=== PATIENT | female | born 1960 | race Caucasian/White ===

== ENCOUNTER 2018-09-09 01:52 | Outpatient (CLI) | payer OTHER ==
--- NOTE | 2018-09-09 13:19 | RAD ---
PA AND LATERAL VIEWS CHEST: Date: 09/09/18 HISTORY: Preoperative evaluation. FINDINGS: The heart size is normal. The lungs are well expanded without lobar consolidation, pneumothoraces, or pleural effusions. There are degenerative changes in the spine. IMPRESSION: No radiographic evidence of acute cardiopulmonary process. POS: TPC
[2018-09-09 16:10] LABS: #Basophils 0.1 thou/uL (0.0-0.2); #Eosinphils 0.2 thou/uL (0.0-0.7); #Lymphocytes 2.3 thou/uL (1.20-3.40); #Monocytes 0.5 thou/uL (0.11-0.59); #Neutrophils 3.4 thou/uL (1.40-6.50); %Basophils 1.1 % (0.0-1.0); %Eosinophils 3.3 % (0.0-10.0); %Lymphocytes 35.4 % (21.0-51.0); %Monocytes 7.1 % (0.0-10.0); %Neutrophils 53.1 % (42.0-75.0); Mean Corpuscular HGB CONC 32.1 g/dL (32.0-36.0); Mean Corpuscular Hemoglobin 25.9 pg (27.0-31.0); Mean Corpuscular Volume 80.8 fL (78.0-98.0); Mean Platelet Volume 8.2 fL (7.4-10.4); Platelet Count 303 thou/uL (130-400); RBC Distribution Width 15.2 % (11.5-14.5); Red Blood Cell (RBC) Count 4.24 mill/uL (4.20-5.40); White Blood Cell (WBC) Count 6.4 thou/uL (4.8-10.8)
[2018-09-09 16:14] LABS: Prothrombin Time 13.2 SEC (12.0-14.7)
[2018-09-09 16:35] LABS: Anion Gap 12 mmol/L (10-20); BUN (Urea Nitrogen) 21 mg/dL (9.8-20.1); Calc. Creatinine Clearance 0 mL/min (70-130); Calcium 10.1 mg/dL (7.8-10.44); Carbon Dioxide 27 mmol/L (22-29); Chloride 103 mmol/L (98-107); Estimated GFR-MDRD 73; Glucose 70 mg/dL (70-105); Potassium 4.5 mmol/L (3.5-5.1); Sodium 137 mmol/L (136-145)
--- NOTE | 2018-09-10 21:24 | EKG ---
Test Reason : Blood Pressure : / mmHG Vent. Rate : 066 BPM Atrial Rate : 066 BPM P-R Int : 134 ms QRS Dur : 082 ms QT Int : 362 ms P-R-T Axes : -08 051 046 degrees QTc Int : 379 ms Normal sinus rhythm Normal ECG When compared with ECG of 28-JUN-2013 15:33, Vent. rate has decreased BY 35 BPM Borderline criteria for Inferior infarct are no longer Present T wave inversion no longer evident in Inferior leads Confirmed by Elizabeth MONTOYA ([id number]) on 09/10/2018 9:24:22 PM Referred By: ELIOT Confirmed By:Elizabeth MONTOYA
== END 2018-09-09 01:53 | disposition home or self-care (01) ==
LOC: LABBT 01:52
PROVIDERS: ATTEND Orthopaedic Surgery
DX: Z01.818 Encounter for other preprocedural examination (principal); M17.11 Unilateral primary osteoarthritis, right knee
CPT/HCPCS: 71046; 80048; 85025; 85610; 87081; 93005; 93010

== ENCOUNTER 2018-09-09 15:30 | Inpatient (IN) | payer OTHER ==
[2018-09-09 09:25] VITALS: BMI 33.5
[2018-09-21] MEDS ORDERED: Midazolam HCl 2 mg/2 ml Vial ONE (07:24)
[2018-09-21] MEDS ORDERED: Fentanyl 100 MCG/2 ML VIAL ONE ×4 (07:24→11:36)
[2018-09-21] MEDS ORDERED: Tranexamic Acid 1,000 MG/10 ML VIAL ONE (07:57)
[2018-09-21] MEDS ORDERED: Sodium Chloride 0.9% 100 ML ONE (07:57)
[2018-09-21] MEDS ORDERED: Vancomycin HCl 1.5 GM in Sodium Chloride 0.9% 250 ML 300 ML IVPB SCH ×3 (08:15→21:00)
[2018-09-21] MEDS ORDERED: Lidocaine 1% (PF) 30 ML VIAL ONE (08:30)
[2018-09-21] MEDS ORDERED: Bupivacaine/Epinephrine 0.25% 30 ML VIAL ONE (09:22)
[2018-09-21] MEDS ORDERED: Zolpidem Tartrate 5 MG TAB PO PRN ×2 (11:13→11:15)
[2018-09-21] MEDS ORDERED: Ondansetron PF 4 MG/2 ML Vial IVP PRN ×2 (11:13→11:15)
[2018-09-21] MEDS ORDERED: Fentanyl 100 MCG/2 ML VIAL SLOW IVP PRN ×2 (11:13)
[2018-09-21] MEDS ORDERED: Promethazine HCl 25 MG/ML VIAL IM PRN ×2 (11:13→11:15)
[2018-09-21] MEDS ORDERED: HYDROcodone/Acetaminophen 10/325 mg Tablet PO PRN ×2 (11:13)
[2018-09-21] MEDS ORDERED: Acetaminophen 325 MG TAB PO PRN (11:13)
[2018-09-21] MEDS ORDERED: traMADol HCl 50 MG TAB PO PRN ×3 (11:13→11:15)
[2018-09-21] MEDS ORDERED: diphenhydrAMINE 25 MG CAP PO PRN (11:13)
[2018-09-21] MEDS ORDERED: CEFAZOLIN 2 GM in Premix Bag 1 BAG IVPB SCH (11:15)
[2018-09-21] MEDS ORDERED: Ropivacaine HCl/PF 250 ML in Premix Bag 1 BAG NERVE BLCK SCH (11:15)
[2018-09-21] MEDS ORDERED: Fentanyl 100 MCG/2 ML VIAL IV PRN (11:16)
[2018-09-21] MEDS ORDERED: Ropivacaine 0.5% HCl/PF (150 MG/30 ML VIAL) ONE (11:24)
[2018-09-21] MEDS ORDERED: Ropivacaine 0.2% HCl/PF (40 MG/20 ML VIAL) ONE (11:24)
--- NOTE | 2018-09-21 11:32 | RAD ---
EXAM: 2 views of the right knee HISTORY: Right knee arthroplasty COMPARISON: None FINDINGS: The patient is status post right knee arthroplasty without perihardware lucency or fracture . Air in the soft tissues is from recent surgery. IMPRESSION: Status post right knee arthroplasty without evidence of complication.
[2018-09-21] MEDS ORDERED: Acetaminophen 1,000 MG in Premix Bag 1 BAG IVPB SCH (11:40)
[2018-09-21] MEDS ORDERED: Ketorolac Tromethamine 30 MG/ML VIAL ONE (11:42)
[2018-09-21] MEDS ORDERED: Ondansetron PF 4 MG/2 ML Vial ONE (12:13)
[2018-09-21] MEDS ORDERED: PROPOFOL 200 MG/20 ML VIAL ONE (12:13)
[2018-09-21] MEDS ORDERED: SUMAtriptan Succinate 50 MG TAB PO PRN (13:27)
[2018-09-21] MEDS ORDERED: PROVENTIL INHALER 6.7 G (200 INHALATIONS) INH PRN (13:32)
[2018-09-21] MEDS: Ketorolac Tromethamine 30 MG/ML VIAL IVP SCH ×2 (13:33→17:56)
[2018-09-21] MEDS: Sodium Chloride 0.9% 1,000 ML IV SCH ×2 (13:34→21:39)
[2018-09-21] MEDS ORDERED: Ketorolac Tromethamine 30 MG/ML VIAL IVP SCH (14:00)
--- NOTE | 2018-09-21 14:00 | OP ---
DATE OF PROCEDURE: 09/21/2018 PREOPERATIVE DIAGNOSIS: Right knee osteoarthritis. POSTOPERATIVE DIAGNOSIS: Right knee osteoarthritis. PROCEDURE PERFORMED: Right total knee arthroplasty. AUTO PARTS PROFESSIONAL: Tung Salcedo PA-C ANESTHESIA: The patient received LMA with an adductor canal catheter and single shot sciatic. TOURNIQUET TIME: 72 minutes at 250 mmHg. ESTIMATED BLOOD LOSS: 100 mL. IMPLANTS: Rigo triathlon 3 femur, 2 tibia, 9 CS tibia, and A29 patella. ANTIBIOTICS: Vancomycin 1.5 g. The patient received TXA 1 g and Ancef 2 g. COMPLICATIONS: None. HISTORY OF PRESENT ILLNESS: Ms. Lopez is a 58-year-old female presented with right knee osteoarthritis. The patient had failed conservative measures, continued to have pain despite surgical intervention. The patient had injections with good pain relief. She had increasing pain and swelling in her right knee. I discussed with the patient, the risks and benefits of right total knee arthroplasty to include pain, scar, bleeding, infection, damage to vital structures, decreased range of motion and strength, nonunion fracture above and below the stem, need for revision, loss of life or limb, and blood clots. The patient understood the risks and benefits and elected to proceed. DESCRIPTION OF PROCEDURE: Time-out was performed designating the patient's right lower extremity as the operative site based on site, consents, and marking. After time-out, the patient's right lower extremity was prepped and draped in sterile fashion. Tourniquet was brought up and left up for a total of 72 minutes. Anterior midline incision, medial patellar arthrotomy, excised the fat pad, did a medial soft tissue release. We mapped out the distal femur cut at 0 degrees of varus and valgus, 8, 8, and 4 degrees of anterior slope. We then placed 3-degree external rotation guide, started at 4 and went to 3 cutting block, cut to 3; anterior, posterior, and chamfer cuts, removed the osteophytes and bone remnants. We then moved our tibia, mapped out and cut 2, 6, and 0 degrees varus, 4 degrees of slope, removed the bone. We then placed our lamina dry mill operator for menisectomies, decompression in PCL as well as our posterior osteophytes. We rasped a little bit over the medial side, which was a little bit sclerotic and may have caused a little bit jump posteriorly. We placed our size 3 tray, which was too big, placed a 2 tray which did well. We done a medial decompression in both osteophytes as well as the tibia, placed our tray into position. We placed our 9 poly, put patient in full extension and good stability and flexion. Otherwise, the patient had good overall alignment. Patella tracked well. We then everted the patella, cut from 25 down to about 13 and placed A29 patella. We then removed and drilled our lugs, cut our keel. We went back and rasped the medial tibia and removed medial tibial plateau. We washed the joint , cemented our tibia and placed our poly. We cemented our femur, removed all excess cement before and after those steps. We then cemented our patella, removed all excess cement, washed out the joint. We closed with #2 Vicryl, 2 STRATAFIX, 0 STRATAFIX, 2-0 STRATAFIX, and then glue. The patient will be admitted for postop protocol. Follow her inhouse. Job ID: [id number] [facility]
[2018-09-21] MEDS: metFORMIN 500 MG TAB PO SCH (17:56)
[2018-09-21] MEDS: CEFAZOLIN 2 GM in Premix Bag 1 BAG IVPB SCH (18:50)
[2018-09-21] MEDS ORDERED: Dextrose 5% in Water 1,000 ML IV PRN (18:59)
[2018-09-21] MEDS ORDERED: HumaLOG 300 UNITS/3 ML VIAL SC PRN ×2 (18:59)
[2018-09-21] MEDS ORDERED: Dextrose 50% Abboject 50 ML SYRINGE SLOW IVP PRN (18:59)
[2018-09-21] MEDS: Pramipexole Di-HCl 1 MG TAB PO SCH (21:30)
[2018-09-21] MEDS: Aspirin 81 mg Enteric Coated Tablet PO SCH (21:30)
[2018-09-21] MEDS: Senokot S 8.6-50 MG TAB PO SCH (21:30)
[2018-09-21] MEDS: Ferrous Gluconate 324 MG TAB PO SCH (21:30)
[2018-09-22] MEDS: Ketorolac Tromethamine 30 MG/ML VIAL IVP SCH ×4 (00:54→18:07)
[2018-09-22] MEDS: HYDROcodone/Acetaminophen 10/325 mg Tablet PO PRN ×5 (00:57→22:53)
[2018-09-22] MEDS: CEFAZOLIN 2 GM in Premix Bag 1 BAG IVPB SCH (01:02)
--- NOTE | 2018-09-22 02:48 | CON ---
DATE OF CONSULTATION: PRIMARY CARE PHYSICIAN: Dr. Ontiveros. PRIMARY TEAM ORTHOPEDICS: Dr. Bravo. REASON FOR CONSULTATION: Medical management. HISTORY OF PRESENT ILLNESS: This is a 58-year-old white female with a history of diabetes mellitus and osteoarthritis. She presented for elective right knee total arthroplasty done by Dr. Bravo earlier today. She is doing well postoperatively, just has a little numbness in the right lower extremity from the nerve block. No other complaints. PAST MEDICAL HISTORY: 1. Diabetes mellitus type 2, on oral hypoglycemics. 2. Restless legs syndrome. 3. Gout, single attack only in her lifetime. 4. Acid reflux disease. 5. Irritable bowel syndrome. 6. Colon cancer, status post resection. 7. Chronic back pain, controlled with epidural steroid injections. PAST SURGICAL HISTORY: 1. Colon resection and lymph node dissection for colon cancer in 2009. 2. Partial hysterectomy. 3. Appendectomy. 4. Cholecystectomy. SOCIAL HISTORY: The patient is . She quit smoking more than 10 years ago. No alcohol or illicit drug use. FAMILY HISTORY: Father had lupus, required kidney transplant and have hypertension and diabetes, and of unknown type of cancer. Mother is living and has angina and gout. ALLERGIES: 1. CLONAZEPAM. 2. GABAPENTIN. 3. LYRICA. 4. PENICILLIN. 5. SULFAMETHOXAZOLE. 6. TRIMETHOPRIM. 7. CALCIUM NITRATE. CURRENT MEDICATIONS: 1. Imitrex as needed for headache. 2. Iron 18 mg p.o. daily. 3. Vitamin D3 5000 units daily. 4. Vitamin C 1000 mg daily. 5. Albuterol sulfate inhaler 2 puffs as needed. 6. Naproxen 500 mg twice a day. 7. Aspirin 81 mg daily. 8. Mirapex 2 mg at night. 9. Omeprazole 40 mg daily. 10. Tramadol 200 mg daily as needed. 11. Metformin 500 mg twice a day. REVIEW OF SYSTEMS: CONSTITUTIONAL: No fevers. No chills. EYES: No double vision or blurred vision. ENT: No congestion, drainage, or sore throat. CARDIOVASCULAR: No chest pain. No palpitation or racing heart. PULMONARY: No coughing, wheezing, or shortness of breath. GASTROINTESTINAL: No abdominal pain. No nausea or vomiting. No diarrhea or constipation. GENITOURINARY: No dysuria or hematuria. MUSCULOSKELETAL: She has chronic swelling and pain in the right knee prior to the knee surgery. No other musculoskeletal complaints. Does have a history of some chronic back problems, that is controlled with some injections. SKIN: No rashes or lesions she has noted. NEUROLOGIC: She has had some tingling and some spasm of her toes since a nerve block for the surgery. Otherwise, no numbness, tingling, or focal weakness. PHYSICAL EXAMINATION: VITAL SIGNS: Blood pressure 113/68, pulse 89, respirations 18, temperature 97.7, O2 saturation 98% on room air. GENERAL: This is a well-developed, obese, white female, in no acute distress. HEENT: Pupils are equal, round, and reactive to light. Oropharynx clear without lesions, erythema, or exudate. NECK: Supple. No lymphadenopathy. No thyromegaly or masses. No JVD. HEART: Regular rate and rhythm. No murmurs, rubs, or gallops. LUNGS: Clear to auscultation bilaterally. No wheezes, crackles, or rhonchi. ABDOMEN: Soft and nontender to palpation. Normoactive bowel sounds. No hepatosplenomegaly or other masses. EXTREMITIES: No clubbing, cyanosis, or edema. She does have a postoperative dressing on her right knee that is clean, dry, and intact. Has intact peripheral pulses. She has SCD and YOLY on her left lower extremity. SKIN: No rashes or lesions noted. NEUROLOGIC: Intact, movement in all extremities. No facial droop. PSYCHIATRIC: Alert and oriented x3. Normal mood and affect. LABORATORY DATA: Negative urinalysis on the of this month, and on the this month, hemoglobin was 11.0, hematocrit 34.3. The rest of the CBC was normal. Coagulation profile was normal. Basic metabolic panel showed only abnormality was a BUN of 21. Chest x-ray, the patient had chest x-ray done on the , showed no acute cardiopulmonary process. ASSESSMENT: 1. Diabetes mellitus type 2, not insulin dependent. We will continue patient's metformin. We will check her fingerstick blood sugars before meals and at bedtime. For now, we will do low-dose insulin sliding scale. If her blood sugars are well controlled, we can discontinue these fingersticks after the 1st day or so. 2. Restless legs syndrome. Continue nighttime medication. 3. History of acid reflux. We will give Protonix in the hospital. 4. Deep venous thrombosis prophylaxis. Sequential compression device and YOLY as per Surgery. 5. Osteoarthritis, status post knee replacement. 6. Code status. I did discuss this with the patient, she is a full code. Should she be incapacitated, her will be her medical decision maker. His name is Aris Lopez. Job ID: [id number]
[2018-09-22 06:23] LABS: Hemoglobin 10.4 g/dL (12.0-16.0); Mean Corpuscular HGB CONC 31.8 g/dL (32.0-36.0); Mean Corpuscular Hemoglobin 25.9 pg (27.0-31.0); Mean Corpuscular Volume 81.2 fL (78.0-98.0); Mean Platelet Volume 8.1 fL (7.4-10.4); Platelet Count 246 thou/uL (130-400); RBC Distribution Width 15.7 % (11.5-14.5); Red Blood Cell (RBC) Count 4.01 mill/uL (4.20-5.40); White Blood Cell (WBC) Count 11.2 thou/uL (4.8-10.8)
[2018-09-22] MEDS: Sodium Chloride 0.9% 1,000 ML IV SCH ×2 (06:52→20:48)
[2018-09-22] MEDS: Multivitamin W/ Minerals 1 TAB PO SCH (08:22)
[2018-09-22] MEDS: Ascorbic Acid 500 mg Chewable Tablet PO SCH (08:23)
[2018-09-22] MEDS: Senokot S 8.6-50 MG TAB PO SCH ×2 (08:23→22:49)
[2018-09-22] MEDS: Ferrous Gluconate 324 MG TAB PO SCH ×2 (08:23→22:48)
[2018-09-22] MEDS: metFORMIN 500 MG TAB PO SCH ×2 (08:23→18:07)
[2018-09-22] MEDS: Aspirin 81 mg Enteric Coated Tablet PO SCH ×2 (08:23→22:48)
--- NOTE | 2018-09-22 08:41 | PDOC.PN ---
- Subjective Encounter Start Date: 09/22/18 Encounter Start Time: 12:50 Subjective: Patient with some postop pain in left knee, domenic with PT this AM. Otherwise -: without complaints. No CP/SOB/N/V. - Objective Resuscitation Status - Order Detail: 09/21/18 19:29 Resuscitation Status Routine Resuscitation Status: FULL: Full Resuscitation Discussed with: Patient FRIEDA Reviewed: Yes Vital Signs & Weight: Vital Signs (12 hours) Temp Pulse Resp BP BP Pulse Ox 09/22/18 08:17 99.1 F 91 16 96/59 L 93 L 09/22/18 03:11 98.5 F 95 18 106/64 93 L 09/21/18 23:36 99.3 F 93 18 131/84 94 L Weight Weight 183 lb I&O: 09/21/18 09/22/18 09/23/18 06:59 06:59 06:59 Intake Total 2080 Output Total 1400 Balance 680 Result Diagrams: 09/22/18 05:49 Additional Labs: Accuchecks 09/22/18 09/21/18 05:41 21:00 POC Glucose 109 99 Phys Exam - Physical Examination Constitutional: NAD HEENT: moist MMs Respiratory: no wheezing, no rales, no rhonchi Cardiovascular: RRR, no significant murmur Gastrointestinal: soft, positive bowel sounds left knee bandage c/d/i Neurological: non-focal, moves all 4 limbs Psychiatric: normal affect, A&O x 3 Dx/Plan (1) Diabetes mellitus type 2 in obese Code(s): E11.69 - TYPE 2 DIABETES MELLITUS WITH OTHER SPECIFIED COMPLICATION; E66.9 - OBESITY, UNSPECIFIED Status: Chronic Comment: controlled on oral hypoglycemics, can d/c routine FSBS (2) GERD (gastroesophageal reflux disease) Code(s): K21.9 - GASTRO-ESOPHAGEAL REFLUX DISEASE WITHOUT ESOPHAGITIS Status: Chronic Comment: on PPI (3) Restless leg syndrome Status: Chronic (4) S/P total knee arthroplasty Code(s): Z96.659 - PRESENCE OF UNSPECIFIED ARTIFICIAL KNEE JOINT Status: Acute Qualifiers: Laterality: right Qualified Code(s): Z96.651 - Presence of right artificial knee joint - Plan cont current plan of care, PT/OT * . - Discharge Day Encounter end time: 13:00
[2018-09-22] MEDS: Pramipexole Di-HCl 1 MG TAB PO SCH (22:49)
[2018-09-23] MEDS: Ketorolac Tromethamine 30 MG/ML VIAL IVP SCH ×2 (01:50→06:11)
[2018-09-23] MEDS: Sodium Chloride 0.9% 1,000 ML IV SCH (03:44)
[2018-09-23 05:06] LABS: Hemoglobin 8.8 g/dL (12.0-16.0); Mean Corpuscular HGB CONC 32.4 g/dL (32.0-36.0); Mean Corpuscular Hemoglobin 26.4 pg (27.0-31.0); Mean Corpuscular Volume 81.4 fL (78.0-98.0); Mean Platelet Volume 8.2 fL (7.4-10.4); Platelet Count 174 thou/uL (130-400); RBC Distribution Width 15.5 % (11.5-14.5); Red Blood Cell (RBC) Count 3.33 mill/uL (4.20-5.40); White Blood Cell (WBC) Count 9.5 thou/uL (4.8-10.8)
[2018-09-23] MEDS: HYDROcodone/Acetaminophen 10/325 mg Tablet PO PRN ×2 (08:21→13:43)
[2018-09-23] MEDS: Multivitamin W/ Minerals 1 TAB PO SCH (08:23)
[2018-09-23] MEDS: metFORMIN 500 MG TAB PO SCH (08:24)
[2018-09-23] MEDS: Aspirin 81 mg Enteric Coated Tablet PO SCH (08:24)
[2018-09-23] MEDS: Senokot S 8.6-50 MG TAB PO SCH (08:24)
[2018-09-23] MEDS: Ferrous Gluconate 324 MG TAB PO SCH (08:25)
[2018-09-23] MEDS: Ascorbic Acid 500 mg Chewable Tablet PO SCH (08:25)
--- NOTE | 2018-09-23 13:52 | PDOC.PN ---
- Subjective Encounter Start Date: 09/23/18 Encounter Start Time: 13:30 Subjective: Patient seen by ortho earlier today and cleared for discharge. Nurse came -: to d/c patient and patient tachycardic. States she just feels "bad" since -: yest. Pain only in right knee. Not hungry but no nausea. - Objective Resuscitation Status - Order Detail: 09/21/18 19:29 Resuscitation Status Routine Resuscitation Status: FULL: Full Resuscitation Discussed with: Patient MAR Reviewed: Yes Vital Signs & Weight: Vital Signs (12 hours) Temp Pulse Resp BP BP Pulse Ox 09/23/18 12:40 101 H 16 124/77 98 09/23/18 08:13 99.2 F 97 18 116/72 96 09/23/18 04:40 98.2 F 92 18 104/69 95 Weight Admit Weight 183 lb Weight 183 lb I&O: 09/22/18 09/23/18 09/24/18 06:59 06:59 06:59 Intake Total 2080 500 Output Total 1400 200 Balance 680 300 Result Diagrams: 09/23/18 04:44 Phys Exam - Physical Examination Constitutional: NAD HEENT: moist MMs Respiratory: no wheezing, no rales, no rhonchi, clear to auscultation bilateral Cardiovascular: no significant murmur tachycardic, regular Gastrointestinal: soft, non-tender, positive bowel sounds Neurological: non-focal Psychiatric: normal affect, A&O x 3 Dx/Plan (1) Diabetes mellitus type 2 in obese Code(s): E11.69 - TYPE 2 DIABETES MELLITUS WITH OTHER SPECIFIED COMPLICATION; E66.9 - OBESITY, UNSPECIFIED Status: Chronic Comment: controlled on oral hypoglycemics, can d/c routine FSBS (2) GERD (gastroesophageal reflux disease) Code(s): K21.9 - GASTRO-ESOPHAGEAL REFLUX DISEASE WITHOUT ESOPHAGITIS Status: Chronic Comment: on PPI (3) Restless leg syndrome Status: Chronic (4) S/P total knee arthroplasty Code(s): Z96.659 - PRESENCE OF UNSPECIFIED ARTIFICIAL KNEE JOINT Status: Acute Qualifiers: Laterality: right Qualified Code(s): Z96.651 - Presence of right artificial knee joint (5) Tachycardia Code(s): R00.0 - TACHYCARDIA, UNSPECIFIED Status: Acute Comment: normal CBC this AM, no leukocytosis, will check CMP/Troponin/D-dimer/CXR, if positive will check CT angio - Plan cont current plan of care, PT/OT If workup neg can d/c home later today * . - Discharge Day Encounter end time: 13:55
--- NOTE | 2018-09-23 14:08 | RAD ---
EXAM: Single view of the chest HISTORY: Tachycardia COMPARISON: 06/28/2013 FINDINGS: Single view of the chest shows a normal sized cardiomediastinal silhouette. There is no diana dence of consolidation, mass, or pleural effusion. The bones are unremarkable. IMPRESSION: No evidence of acute cardiopulmonary disease
[2018-09-23 14:42] LABS: ALT (SGPT) 69 U/L (8-55); AST (SGOT) 36 U/L (5-34); Albumin 3.5 g/dL (3.5-5.0); Alkaline Phosphatase 96 U/L (40-150); Anion Gap 14 mmol/L (10-20); BUN (Urea Nitrogen) 22 mg/dL (9.8-20.1); Bilirubin, Total 0.5 mg/dL (0.2-1.2); Calc. Creatinine Clearance 92 mL/min (70-130); Calcium 8.6 mg/dL (7.8-10.44); Carbon Dioxide 24 mmol/L (22-29); Chloride 102 mmol/L (98-107); Estimated GFR-MDRD 68; Globulin 2.8 g/dL (2.4-3.5); Glucose 122 mg/dL (70-105); Potassium 4.5 mmol/L (3.5-5.1); Protein, Total 6.3 g/dL (6.0-8.3); Sodium 135 mmol/L (136-145)
--- NOTE | 2018-09-23 15:22 | CT ---
CT ANGIOGRAM THORAX WITH IV CONTRAST AND 3-D RECONSTRUCTIONS CLINICAL INDICATION: Tachycardia and elevated d-dimer post recent surgery. COMPARISON: None FINDINGS: Pulmonary arteries: No filling defects are seen in the pulmonary arteries to suggest a pulmonary embo connor. Aorta: The aorta is normal in caliber without evidence of an aortic dissection. Of uncertain etiology. Pleural-based plaques can be seen with prior asbestos exposure. Lungs: There are scattered but diffuse mild pleural-based plaques involving the lungs bilaterally. Th is is an overall nonspecific finding. Clinical correlation is recommended. Mediastinum: There is no evidence of lymphadenopathy. Thyroid gland: There is a peripherally calcified hypodense nodule right lobe of thyroid gland measuri ng 1.7 cm. Osseous structures: Mild degenerative changes are seen in the spine. Chest wall: There is mild asymmetry in the breast parenchyma in the right breast compared to the left . However, this was noted on prior mammograms in 2018 as well as 2013. Upper abdomen: Postcholecystectomy changes are noted. IMPRESSION: 1. Nonspecific scattered bilateral discontinuous pleural-based plaques. Findings could be related to asbestos exposure in the correct clinical scenario, but other etiologies for pleural-based plaques is also possible. Clinical correlation is recommended. 2. No CT evidence of a pulmonary embolus.
[2018-09-23 15:50] VITALS: BP 105/69; TEMP 99.1
== END 2018-09-23 15:55 | disposition home or self-care (01) | DRG 470 ==
LOC: SURG A 09-21 06:51
PROVIDERS: ADMIT Orthopaedic Surgery; ATTEND Orthopaedic Surgery
PROC: 0SRC0J9 Replacement of Right Knee Joint with Synthetic Substitute, Cemented, Open Approach (ICD-10-PCS; principal; 2018-09-21)
DX: M17.11 Unilateral primary osteoarthritis, right knee (principal); E11.9 Type 2 diabetes mellitus without complications; G25.81 Restless legs syndrome; M10.9 Gout, unspecified; K21.9 Gastro-esophageal reflux disease without esophagitis; R00.0 Tachycardia, unspecified; D64.9 Anemia, unspecified; Z85.038 Personal history of other malignant neoplasm of large intestine; Z79.84 Long term (current) use of oral hypoglycemic drugs; Z90.710 Acquired absence of both cervix and uterus; Z90.49 Acquired absence of other specified parts of digestive tract; Z87.891 Personal history of nicotine dependence; Z88.0 Allergy status to penicillin; Z88.2 Allergy status to sulfonamides; Z88.8 Allergy status to other drugs, medicaments and biological substances; Z79.82 Long term (current) use of aspirin; Z79.899 Other long term (current) drug therapy
CPT/HCPCS: 36415; 36416; 71045; 71275; 80053; 84484; 85027; 85379; 93005; 93010; C1713; C1776; J0131; J0690; J1885; J2001; J2250; J2405; J2704; J2795; J3010; J3370; J3490; J7050

== ENCOUNTER 2018-12-07 06:34 | Day surgery (SDC) | payer OTHER ==
[2018-12-06 09:00] VITALS: BMI 31.4
[2018-12-07] MEDS ORDERED: Fentanyl 100 MCG/2 ML VIAL ONE ×3 (07:42→09:38)
[2018-12-07] MEDS ORDERED: Midazolam HCl 2 mg/2 ml Vial ONE (07:42)
[2018-12-07] MEDS ORDERED: Ketorolac Tromethamine 30 MG/ML VIAL ONE (09:44)
--- NOTE | 2018-12-07 09:58 | RAD ---
RIGHT KNEE THREE VIEWS: HISTORY: Knee pain. Manipulation under anesthesia. FINDINGS: A right knee prosthesis is noted. Components appear in adequate position and alignment. No evidence of joint effusion. No fracture or acute osseous abnormality. IMPRESSION: No acute finding. POS: OFF
[2018-12-07] MEDS ORDERED: Morphine 2 MG/ML SYRINGE ONE (10:04)
[2018-12-07] MEDS ORDERED: Bupivacaine HCl 0.5%/Epinephrine 1:200,000/PF 30 ml Vial ONE (15:02)
[2018-12-07] MEDS ORDERED: Dexamethasone 20 MG/5 ML VIAL ONE (15:21)
[2018-12-07] MEDS ORDERED: Lidocaine 1% PF 5 ML VIAL ONE (15:21)
[2018-12-07] MEDS ORDERED: PROPOFOL 200 MG/20 ML VIAL ONE (15:21)
[2018-12-07] MEDS ORDERED: Ondansetron PF 4 MG/2 ML Vial ONE (15:21)
--- NOTE | 2018-12-07 15:30 | OP ---
DATE OF PROCEDURE: 12/07/2018 PREOPERATIVE DIAGNOSES: Right knee osteoarthritis with postoperative stiffness. POSTOPERATIVE DIAGNOSES: Right knee osteoarthritis with postoperative stiffness. PROCEDURE PERFORMED: Right knee manipulation under anesthesia. ANESTHESIOLOGIST: Ronnie Licona MD ANESTHESIA: The patient received LMA. The patient received a single-shot femoral block. ANTIBIOTICS: None. ESTIMATED BLOOD LOSS: None. COMPLICATIONS: None. HISTORY OF PRESENT ILLNESS: Ms. Lopez is a 58-year-old female presented with stiff knee postoperatively at about 0 to 80 degrees of motion. I discussed with her the risks and benefits of a right knee manipulation under anesthesia to include pain, scar, bleeding, infection, damage to vital structures, decreased range of motion and strength, fracture, failure of procedure, continued pain, need for further surgery, loss of life or limb. The patient understood the risks and benefits and elected to proceed. DESCRIPTION OF PROCEDURE: Time-out was performed designating the patient's right lower extremity as the operative site based on site, consents, and marking. In the right lower extremity, we performed a time-out. I put the patient on sandbag, straightened her leg out, build gentle manipulation, and then flexed her knee up. She measured about 80 degrees preop. I got her to 126 by my goniometer. After completion of manipulation AP and laterally, we took AP and lateral views, one both lateral and one flexed, showing no fracture of patella or any defect on the patella. We then completed the procedure and transferred the patient back. The patient will start therapy tomorrow. She will walk today. If she requires a knee immobilizer, she will use that to ambulate in home. She will not require it after the block wears off. The patient will follow up with us in about 3 weeks for repeat exam of her patella from her motion. She understands all these risks and benefits. She understands the followup. She will be discharged home with pain medications. Job ID: [id number]
== END 2018-12-07 11:03 | disposition home or self-care (01) ==
LOC: SDC 06:34
PROVIDERS: ATTEND Orthopaedic Surgery
PROC: 0SQCXZZ Repair Right Knee Joint, External Approach (ICD-10-PCS; principal; 2018-12-07)
PROC: 3E0T3BZ Introduction of Anesthetic Agent into Peripheral Nerves and Plexi, Percutaneous Approach (ICD-10-PCS; principal; 2018-12-07)
DX: M25.661 Stiffness of right knee, not elsewhere classified (principal); G89.18 Other acute postprocedural pain; Z79.82 Long term (current) use of aspirin; Z79.84 Long term (current) use of oral hypoglycemic drugs; Z79.899 Other long term (current) drug therapy; Z87.891 Personal history of nicotine dependence; Z88.0 Allergy status to penicillin; Z88.8 Allergy status to other drugs, medicaments and biological substances; Z96.651 Presence of right artificial knee joint
CPT/HCPCS: J0670; J1100; J1885; J2001; J2250; J2270; J2405; J2704; J3010

== ENCOUNTER 2019-10-31 09:28 | Outpatient (CLI) | payer OTHER ==
--- NOTE | 2019-10-31 11:00 | MRI ---
MRI LUMBAR SPINE NONCONTRAST: DATE: 10/31/2019 HISTORY: 59-year-old female with "acute lumbar radiculopathy" superimposed on chronic low back pain COMPARISON: 11/25/2010 FINDINGS: 5 lumbar-type vertebrae. Conus medullaris terminates at T12-L1. No major bone marrow signal abnormali ty. Vertebral body heights are maintained. T12-L1:Normal L1-2:Normal L2-3:Minimal disc bulge. Mild right facet DJD. Otherwise normal. L3-4:Mild disc bulge. No central or neural foraminal stenosis. Mild bilateral facet DJD. L4-5:Severe bilateral facet DJD causes grade 1 anterolisthesis of L4 on L5, which has worsened 2011. Diffuse disc bulge is now larger. All of these factors now result in a new finding of severe central spinal canal stenosis with crowding of cauda equina and obliteration of CSF signal, and sever e lateral recess stenosis bilaterally. There is moderate right neural foraminal stenosis, and mild to moderate left neural foraminal stenosis. There is interval decrease in disc height, now with moder ate disc space narrowing. L5-S1:No high-grade disc space narrowing. Small central and right-central disc herniation has become slightly larger, with new finding of slightly greater right posterior displacement of the right S1 nerve root, and abutment of right S2 nerve root.. New small bilateral nerve root sleeve cysts around the bilateral S1 nerve roots at the lateral recesses. No high-grade central spinal canal stenosis. No right neural foraminal stenosis. Mild left neural foraminal stenosis. IMPRESSION: 1) interval worsening of grade 1 spondylolisthesis at L4-5 (due to severe bilateral facet osteoarthro sis), resulting in severe central spinal canal stenosis and progression of moderate degenerative disc disease, at that level. 2) interval increase in size of small right-central focal disc herniation at L5-S1.
== END 2019-10-31 09:29 | disposition home or self-care (01) ==
LOC: BICMRI 09:28
PROVIDERS: ATTEND Anesthesiology Pain Medicine
DX: M47.26 Other spondylosis with radiculopathy, lumbar region (principal); M51.16 Intervertebral disc disorders with radiculopathy, lumbar region; M43.16 Spondylolisthesis, lumbar region; M48.061 Spinal stenosis, lumbar region without neurogenic claudication; M51.27 Other intervertebral disc displacement, lumbosacral region
CPT/HCPCS: 72148

== ENCOUNTER 2020-02-08 05:47 | Outpatient (CLI) | payer OTHER ==
[2020-02-08 08:55] LABS: Hemoglobin 8.3 g/dL (12.0-16.0); Mean Corpuscular Hemoglobin 24.2 PG (27.0-33.0); Mean Corpuscular Volume 80.8 fl (80.0-100.0); Mean Platelet Volume 10.5 fl (7.4-10.4); Platelet Count 245 10x3/uL (130-400); RBC Distribution Width 14.8 % (11.5-14.5); Red Blood Cell (RBC) Count 3.43 10x6/uL (3.90-5.20); White Blood Cell (WBC) Count 5.1 10x3/uL (4.5-11.0)
[2020-02-08 09:14] LABS: PTT 26.5 sec (22.0-33.0); Prothrombin Time 10.8 sec (9.5-12.1)
[2020-02-09 18:38] LABS: SARS-CoV-2 MS2 Positive; SARS-CoV-2 N Gene Negative; SARS-CoV-2 S Gene Negative; SARS-CoV-2 by NAA Not Detected (NotDetected); SARS-CoV-2 orf1ab Negative
--- NOTE | 2020-02-14 02:13 | EKG ---
Test Reason : Blood Pressure : / mmHG Vent. Rate : 081 BPM Atrial Rate : 081 BPM P-R Int : 114 ms QRS Dur : 084 ms QT Int : 342 ms P-R-T Axes : 018 044 036 degrees QTc Int : 397 ms Normal sinus rhythm Normal ECG No previous ECGs available Confirmed by AUSTIN ALEGRIA MD ([id number]) on 02/14/2020 2:12:49 AM Referred By: MARGARITA Confirmed By:AUSTIN ALEGRIA MD
== END 2020-02-08 05:48 | disposition home or self-care (01) ==
LOC: LABBT 05:47
PROVIDERS: ATTEND Neurological Surgery
DX: Z01.818 Encounter for other preprocedural examination (principal); Z20.828 Contact with and (suspected) exposure to other viral communicable diseases; M43.16 Spondylolisthesis, lumbar region
CPT/HCPCS: 85027; 85610; 85730; 87635; 93005; 93010; U0003

== ENCOUNTER 2020-02-08 08:30 | Inpatient (IN) | payer OTHER ==
[2020-02-10 08:58] VITALS: BMI 32.5
--- NOTE | 2020-02-13 05:08 | HP ---
REASON FOR HISTORY AND PHYSICAL: Surgery on 02/13/2020. Case #[id number]. HISTORY OF PRESENT ILLNESS: Ms. Lopez is a 59-year-old female with a chief complaint of lower back and bilateral leg pain for the past 10 years. She has been receiving epidural spinal injections and they are only giving her about a week's worth of relief from her symptoms. Can walk about 100 to 200 feet before she has to sit or bend forward to alleviate some of her pain. Pain radiates into her bilateral gluteal muscles, anterior thighs, posterior calves, and plantar aspects of the feet. Her symptoms are greater on the right side than left side. She also reports some weakness in her feet. Denied bladder or bowel dysfunction. REVIEW OF SYSTEMS: CONSTITUTIONAL: Denies fever or chills. ENT: Denies change in vision or hearing. CARDIAC: Denies chest pain, shortness of breath, diaphoresis. PULMONARY: Denies shortness of breath, cough, hemoptysis. GI: Denies fecal incontinence, abdominal pain, nausea, vomiting, diarrhea, change in stool formation and consistency. : Denies urinary incontinence, trouble with urination, frequency of urination, bloody urine. SKIN: Denies skin rash, bruising, bleeding, skin masses. MUSCULOSKELETAL: As per history of present illness. NEUROLOGIC: As per history of present illness. PSYCHOLOGIC: Denies anxiety, depression, behavior changes. MEDICAL HISTORY: Herniated disk, ovarian cyst, endometriosis, colon cancer, SP colectomy in 03/2009, IBS. SURGICAL HISTORY: Hysterectomy 20 years ago, ovarian 1989, gallbladder surgery in 1999, appendectomy in 2004, rectocele in 2007, colon resection on 04/16/2009, RT TKR on 09/21/18, RT BAILEY on 12/07/2018. HOSPITALIZATIONS: Above surgeries. FAMILY HISTORY: Father , kidney problems, diabetes, high blood pressure, heart disease, lupus. Mother alive, heart murmur, thyroid disease, osteoarthritis. SOCIAL HISTORY: Former smoker. Quit in 2006. Denies alcohol use or illicit drug use. MEDICATIONS: 1. Albuterol 90 mcg. 2. Pramipexole 0.25 mg. 3. Omeprazole 40 mg. 4. Sumatriptan 100 mg. 5. Metformin 500 mg. 6. Naproxen 500 mg. 7. Vitamin D 1000 units. 8. Vitamin C 500 mg. 9. Fish oil 5 mg. 10. Simvastatin 10 mg. 11. Acetaminophen and hydrocodone 10/325 mg. ALLERGIES: CALCIUM ACETATE, STOMACH UPSET; KLONOPIN ALLERGY; GABAPENTIN, SWELLING. PHYSICAL EXAMINATION: VITAL SIGNS: Weight 170 pounds, height 62 inches, BMI 31.09. HEENT: Pupils are equal. Extraocular movements are intact. NECK: Soft, supple. No masses are noted. Range of motion is intact and nonpainful. NEUROLOGIC: Awake, alert, and oriented x3. Memory, attention, fund of knowledge normal. Cranial nerves are grossly intact. Gait and station: Normal. Motor: Normal strength in the iliopsoas, quadriceps, hamstrings, anterior tib, EHL, gastrocs and toe flexors. Sensory: Mild stocking distribution, sensory loss bilaterally. Reflex: Knee and ankle hypoactive, symmetric. IMAGING: MRI of the L-spine: Moderate L5-S1 lateral recess stenosis. Severe L4-5 stenosis and foraminal. Spondylolisthesis, L4-5. X-ray L-spine: Flexion and extension stable. ASSESSMENT: 1. Spondylolisthesis of the lumbar region. 2. 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 3. Osseous and subluxation stenosis of intervertebral foramina of the lumbar region. PLAN: 1. Laminectomy in L4-S1 with TLIF at L4-5. 2. Anesthesia clearance. 3. Preop labs, CBC, PT, PTT, COVID-19. INFORMED CONSENT: We discussed the indications, risks, benefits, alternatives, and expected results from surgery. The risks discussed included, but were not limited to, bleeding, infection, CSF leak, nerve damage, weakness, incontinence, cauda equina injury, arachnoiditis, paralysis, ventilator dependency, wheelchair dependency, loss of vision, hardware misplacement, cardiopulmonary complications of anesthesia or . Long-term complications discussed included, but were not limited to, degeneration of surrounding disk and future surgery. She understands the risks and is willing to proceed. Job ID: [id number]
[2020-02-13] MEDS ORDERED: EPINEPHrine 1 MG/ML AMP ONE ×2 (06:11→14:15)
[2020-02-13] MEDS ORDERED: Thrombin 5000 UNITS/5 ML VIAL ONE (06:11)
[2020-02-13] MEDS ORDERED: Bupivacaine PF 0.5% 30 ML VIAL ONE (06:11)
[2020-02-13] MEDS ORDERED: Fentanyl 100 MCG/2 ML VIAL ONE ×4 (06:37→13:05)
[2020-02-13] MEDS ORDERED: Promethazine HCl 25 MG/ML VIAL IM PRN ×2 (07:34→11:52)
[2020-02-13] MEDS ORDERED: Promethazine HCl 25 MG/ML VIAL SLOW IVP PRN (07:34)
[2020-02-13] MEDS ORDERED: Ondansetron HCl/PF 4 MG/2 ML Vial IVP PRN (07:34)
[2020-02-13] MEDS ORDERED: Phenylephrine 10 MG/ML VIAL ONE (08:32)
[2020-02-13] MEDS ORDERED: Promethazine 25 MG TAB PO PRN (11:52)
[2020-02-13] MEDS ORDERED: Acetaminophen 325 MG TAB PO PRN (11:52)
[2020-02-13] MEDS ORDERED: Milk Of Magnesia 30 ML UDCUP PO PRN (11:52)
[2020-02-13] MEDS ORDERED: Scopolamine 1.5 mg/72 hour Patch TD PRN (11:52)
[2020-02-13] MEDS ORDERED: Morphine 2 MG/ML VIAL SLOW IVP PRN (11:52)
[2020-02-13] MEDS ORDERED: traMADol HCl 50 MG TAB PO PRN (11:52)
[2020-02-13] MEDS ORDERED: Mag-Al 1200 mg/1200 mg/30 ML UDCUP PO PRN (11:52)
[2020-02-13] MEDS ORDERED: diphenhydrAMINE 25 MG CAP PO PRN (11:52)
[2020-02-13] MEDS ORDERED: SUMAtriptan Succinate 50 MG TAB PO PRN (12:24)
[2020-02-13] MEDS ORDERED: Albuterol Sulfate 2.5 mg/3 ml Neb NEB PRN (12:27)
[2020-02-13] MEDS ORDERED: Rocuronium Bromide 10 MG/ML (10ML VIAL) ONE (14:15)
[2020-02-13] MEDS ORDERED: Ondansetron PF 4 MG/2 ML Vial ONE (14:15)
[2020-02-13] MEDS ORDERED: PHENYLEPHRINE-NS 100 MCG/ML 10 ML SYRINGE ONE (14:15)
[2020-02-13] MEDS ORDERED: PROPOFOL 200 MG/20 ML VIAL ONE (14:15)
[2020-02-13] MEDS ORDERED: Glycopyrrolate 0.2 MG/ML 5 ML SYRINGE ONE (14:15)
[2020-02-13] MEDS ORDERED: Lidocaine 1% PF 5 ML VIAL ONE (14:15)
[2020-02-13] MEDS ORDERED: Morphine 4 MG/ML VIAL ONE ×2 (15:22→16:56)
--- NOTE | 2020-02-13 17:11 | OP ---
DATE OF PROCEDURE: 02/13/2020 [employer]IGAR PACKER AND SHADER: Lokesh Martinez PA-C PREOPERATIVE INDICATION: Treat pain and prevent neurological deterioration. PREOPERATIVE DIAGNOSIS: Lumbar stenosis with neurogenic claudication at L4-5 from subluxation at L5-S1 from facet overgrowth and lateral recess disease. POSTOPERATIVE DIAGNOSIS: Lumbar stenosis with neurogenic claudication at L4-5 from subluxation at L5-S1 from facet overgrowth and lateral recess disease. PROCEDURES PERFORMED: 1. Decompressive laminectomy with medial facetectomy, foraminotomy at L4-5 and L5-S1. 2. Transforaminal lumbar interbody arthrodesis at L4-L5. 3. Pedicle screw and scarlet instrumentation at L4-L5. 4. Placement of intervertebral biomechanical device at L4-L5. 5. Posterolateral arthrodesis at L4-L5. 6. Local morselized autograft and morselized allograft. PREOPERATIVE MEDICATIONS: Ancef 2 g IV. DRAIN NUMBER: Zero. DRAIN TYPE: None. DESCRIPTION OF PROCEDURE: The patient was brought to the operating room. General endotracheal anesthesia was induced. The patient was positioned prone on the operating table on the Jay frame with appropriate padding for the chest and hips. A lateral fluoro radiograph was used to plan our incision. The lumbar skin was sterilely prepped and draped. We opened a midline incision with a 10 blade knife. We controlled bleeding with bipolar cautery. We used monopolar cautery to dissect through subcutaneous tissues to the thoracodorsal fascia. We incised the fascia in the midline, reflected paraspinal muscles off the spinous process and lamina from L4 through S1. A lateral fluoro radiograph confirmed the levels upon which we were operating. We carried our dissection over the facet joints at L3-L4 and L4-L5 to identify the transverse processes of L4 and L5 bilaterally. We irrigated with bacitracin irrigation. We began our decompression by removing spinous processes from L4 to the top of the sacrum. Kerrison rongeurs were used to fashion a laminectomy down the midline. There was a significant amount of connective tissue buildup at the L4-L5 interspace requiring a generous amount of medial facetectomy to decompress the lateral recesses there. We had to perform foraminotomies over the exiting L4 nerve roots on both sides (more decompression than necessary for TLIF). At L5-S1, medial facetectomies were needed to decompress the lateral recesses over the S1 nerve roots. Once our decompression was secured, we turned our attention to arthrodesis. We performed a complete facetectomy on the right at L4-5 and using this access point, I entered the interspace with the thecal sac gently retracted medially. We removed disk contents using curettes and rongeurs. We prepared the endplates for grafting with curettes. We measured the height of the interspace 10 mm with a rectangular bone rasp. A 10 mm PEEK interbody graft was brought into the field. This device was loaded with demineralized bone matrix and morselized autograft and advanced into the interspace under radiographic guidance to the appropriate depth. We turned our attention to pedicle screw instrumentation. Using bony anatomic landmarks, palpation of the medial portion of the pedicles, and a lateral fluoro radiograph as our guide, we chose entry points for pedicle screws at L4 and L5 bilaterally. We drilled out our entry points and used a bone awl to create our trajectories. We used a threaded tap to tap our trajectories and we found a completely encased bone. 6.5 mm diameter pedicle screws were placed at L4 and L5 bilaterally. A 360-degree image set was generated with our isocentric C-arm. This confirmed adequate positioning of our pedicle screw instrumentation. We irrigated with bacitracin irrigation. We decorticated the transverse processes of L4 and L5 bilaterally. We laid demineralized bone matrix and morselized autograft over the decorticated bone in the posterolateral recess as our fusion substrate in that area. We brought rods and other screw heads and tightened caps over the rods. We used gentle compressive force across the interspace before final tightening to keep our interbody graft in place. A Davis ball was passed out at each L4 foramen without impingement at the completion of the scarlet instrumentation. We irrigated the center of the wound with bacitracin irrigation. We treated the wound with vancomycin powder. We closed the wound in anatomical layers. We applied a sterile dressing. This was a clean case, no contamination. Job ID: [id number]
[2020-02-13] MEDS: CEFAZOLIN 2 GM in Premix Bag 1 BAG IVPB SCH (18:31)
[2020-02-13] MEDS: metFORMIN 500 MG TAB PO SCH (18:35)
[2020-02-13] MEDS: Sodium Chloride 0.9% 1,000 ML IV SCH (18:35)
[2020-02-13] MEDS: HYDROcodone/Acetaminophen 10/325 mg Tablet PO PRN (18:38)
[2020-02-13] MEDS ORDERED: Simvastatin 10 MG TAB PO SCH (21:00)
[2020-02-13] MEDS ORDERED: Pramipexole Di-HCl 1 MG TAB PO SCH (21:00)
[2020-02-13] MEDS: tiZANidine HCl 4 MG TAB PO PRN (22:34)
[2020-02-14] MEDS: CEFAZOLIN 2 GM in Premix Bag 1 BAG IVPB SCH (01:08)
[2020-02-14] MEDS: HYDROcodone/Acetaminophen 10/325 mg Tablet PO PRN ×3 (01:08→15:08)
[2020-02-14] MEDS: Sodium Chloride 0.9% 1,000 ML IV SCH (03:24)
--- NOTE | 2020-02-14 07:50 | PRG ---
DATE OF SERVICE: 02/14/2020 I saw Lolly Lopez in her hospital room this morning. She is 1 day out from decompression and fusion of the lumbar spine. She is feeling sore, but otherwise doing well. The highest temperature I see recorded overnight is 99.9 degrees Fahrenheit. Blood pressures have been in the 100s to 110s. There is good neurological function in lower extremities. Today's plan is to mobilize. If she is safe for activities of daily living, she can be discharged home late today or tomorrow morning. I think she will do well and not need inpatient rehabilitation, but we will see after physical therapy today. Job ID: [id number]
[2020-02-14 08:41] VITALS: BP 101/57; TEMP 99.1
[2020-02-14] MEDS: tiZANidine HCl 4 MG TAB PO PRN ×2 (08:50→15:08)
[2020-02-14] MEDS: metFORMIN 500 MG TAB PO SCH (08:50)
[2020-02-14] MEDS ORDERED: Losartan 25 MG TAB PO SCH (09:00)
[2020-02-14] MEDS ORDERED: FLU VACC QS2020-21(6MOS UP)/PF 60 MCG/0.5 ML SYRINGE IM ONE (09:00)
--- NOTE | 2020-02-15 13:21 | DIS ---
DATE OF ADMISSION: 02/13/2020 DATE OF DISCHARGE: 02/14/2020 HOSPITAL COURSE: Ms. Lopez is a 59-year-old female, who underwent a laminectomy at L4-S1 with a TLIF L4-5. Following her surgery, she was transitioned to the Med/Surg floor where her pain has been well controlled with p.o. medications. She is tolerating a regular diet and voiding appropriately. She is otherwise doing well and ambulating easily in the hallways and feels that she is ready to go home today. PHYSICAL EXAMINATION: GENERAL: On exam, she is awake, alert, in no acute distress. EXTREMITIES: She has free active range of motion of all extremities. No focal motor weakness. No reflex asymmetry. Her incision is clean, dry, and intact. PLAN: We will plan to discharge Ms. Lopez home today. I have discussed home care precautions with her. CONDITION ON DISCHARGE: The patient had no emergencies. Condition was stable for discharge. MEDICATIONS: Home going medications were reviewed. Followup arrangements made by our sustainable design coordinator in the clinic and call to the patient. ACTIVITIES: Restrictions were reviewed in person. Wound care showers are acceptable. The patient should pat the incision dry, but not submerge it under the surface of the body of water for one month. Job ID: [id number] [facility]
== END 2020-02-14 16:00 | disposition home or self-care (01) | DRG 455 ==
LOC: SURG A 02-13 05:33 → EDSTATUS 02-13 08:30 → 3SW 02-13 17:37
PROVIDERS: ADMIT Neurological Surgery; ATTEND Neurological Surgery
PROC: XRGB092 Fusion of Lumbar Vertebral Joint using Nanotextured Surface Interbody Fusion Device, Open Approach, New Technology Group 2 (ICD-10-PCS; principal; 2020-02-13)
PROC: 0SG0071 Fusion of Lumbar Vertebral Joint with Autologous Tissue Substitute, Posterior Approach, Posterior Column, Open Approach (ICD-10-PCS; 2020-02-13)
PROC: 01NB0ZZ Release Lumbar Nerve, Open Approach (ICD-10-PCS; 2020-02-13)
PROC: 01NR0ZZ Release Sacral Nerve, Open Approach (ICD-10-PCS; 2020-02-13)
PROC: 0SB20ZZ Excision of Lumbar Vertebral Disc, Open Approach (ICD-10-PCS; 2020-02-13)
PROC: 3E02340 Introduction of Influenza Vaccine into Muscle, Percutaneous Approach (ICD-10-PCS; 2020-02-14)
DX: M48.062 Spinal stenosis, lumbar region with neurogenic claudication (principal); M43.16 Spondylolisthesis, lumbar region; Z23 Encounter for immunization; Z20.828 Contact with and (suspected) exposure to other viral communicable diseases; M51.36 Other intervertebral disc degeneration, lumbar region; J44.9 Chronic obstructive pulmonary disease, unspecified; E78.5 Hyperlipidemia, unspecified; G25.81 Restless legs syndrome; M17.11 Unilateral primary osteoarthritis, right knee; G43.909 Migraine, unspecified, not intractable, without status migrainosus; Z85.038 Personal history of other malignant neoplasm of large intestine; Z90.49 Acquired absence of other specified parts of digestive tract; Z90.710 Acquired absence of both cervix and uterus; Z87.891 Personal history of nicotine dependence; Z79.51 Long term (current) use of inhaled steroids; Z79.84 Long term (current) use of oral hypoglycemic drugs; Z79.899 Other long term (current) drug therapy
CPT/HCPCS: 76000; C1713; C1768; J0171; J0690; J2270; J2370; J2405; J2704; J3010; J3370; J3490; S0020

== ENCOUNTER 2020-02-16 04:05 | Inpatient (IN) | payer OTHER ==
[2020-02-16] MEDS ORDERED: Morphine 4 MG/ML VIAL ONE ×2 (04:23→07:46)
[2020-02-16] MEDS ORDERED: Ondansetron PF 4 MG/2 ML Vial ONE ×2 (04:24→07:46)
[2020-02-16 05:06] LABS: #Eosinphils 0.1 thou/uL (0.0-0.7); #Lymphocytes 1.2 thou/uL (1.20-3.40); #Monocytes 0.9 thou/uL (0.11-0.59); #Neutrophils 8.1 thou/uL (1.40-6.50); %Basophils 0.5 % (0.0-1.0); %Eosinophils 1.3 % (0.0-10.0); %Lymphocytes 11.6 % (21.0-51.0); %Monocytes 8.7 % (0.0-10.0); %Neutrophils 77.9 % (42.0-75.0); Hemoglobin 6.8 g/dL (12.0-16.0); Mean Corpuscular HGB CONC 29.9 g/dL (32.0-36.0); Mean Corpuscular Hemoglobin 23.9 pg (27.0-31.0); Mean Platelet Volume 8.7 fL (7.4-10.4); Platelet Count 182 thou/uL (130-400); RBC Distribution Width 13.8 % (11.5-14.5); Red Blood Cell (RBC) Count 2.86 mill/uL (4.20-5.40); White Blood Cell (WBC) Count 10.4 thou/uL (4.8-10.8)
[2020-02-16] MEDS ORDERED: Acetaminophen 500 MG TAB ONE (05:47)
--- NOTE | 2020-02-16 08:26 | MRI ---
MRI THORACIC SPINE WITHOUT CONTRAST: HISTORY: Back surgery on Thursday. Fever and pain. Evaluate for postoperative complication. Evaluate for abscess . FINDINGS: Axial T1 and T2-weighted images are limited due to motion degradation. Visualized mediastinum has appropriate signal intensity. Small bilateral pleural effusions. Scarring and atelectasis in the lung bases. Visualized solid organs have appropriate signal intensity. Visualized paraspinal muscles have appropriate signal intensity. The thoracic cord has a normal size and signal intensity. No cord expansion, cord malacia or abnormal T2 hyperintensity in the thoracic cord. Conus medullaris terminates at the mid T12 level. Hemangioma involving the left T10 vertebral body. Overall there is appropriate T1 marrow signal inten sity of the thoracic vertebrae. Vertebral body heights are maintained. No fracture. No significant STIR hyperintensity to suggest ligamentous injury or vertebral body edema. There is multilevel vacuum disc phenomenon. There is no significant central canal stenosis or signifi cant neural foraminal narrowing throughout the thoracic spine. T4-T5: Broad-based disc bulge with mild central canal stenosis. IMPRESSION: 1. No evidence of a postoperative fluid collection/epidural abscess. 2. Nonspecific bilateral pleural effusions. Transcribed Date/Time: 02/16/2020 8:38 AM
--- NOTE | 2020-02-16 08:46 | MRI ---
Exam: Lumbar spine MRI with and without contrast COMPARISON: 10/31/2019 HISTORY: Patient status post surgery. Pain. Patient had fusion on 02/13/2020 FINDINGS: There are bilateral transpedicular screws at L4 and L5 with associated metallic susceptibility artifa ct. There is appropriate T1 marrow signal intensity of the lumbar vertebra. Lumbar spine vertebral body height is maintained and there is no fracture. There is no significant STIR hyperintensity to loco ggest ligamentous injury or vertebral body edema. There is mixed signal intensity in the posterior paraspinal soft tissues at the L3, L4 vertebral body levels. Postoperative edema and fluid is suspect ed. On the sagittal images, there are some T1 isointense and T2 hypointense foci which may represent postoperative hemorrhage. Postcontrast images demonstrate incomplete, minimal peripheral en hancement. There is some mass effect upon the thecal sac at the S1 level. The fluid collection measures 4.7 cm craniocaudal x 2.6 cm anterior posterior x 2.5 cm mediolateral. There is 4.8 mm of an terolisthesis of L4 upon L5. Conus medullaris terminates at the mid T12 level. Postcontrast images do not demonstrate any abnormal enhancement within the thecal sac including the c auda equina and conus medullaris. T12-L1: Adequate disc hydration. No significant central canal stenosis or significant neural foramina l narrowing. L1-L2: Adequate disc hydration. No significant central canal stenosis or significant neural foraminal narrowing. L2-L3: Adequate disc hydration. No significant central canal stenosis or significant neural foraminal narrowing. L3-L4: Adequate disc hydration. No significant central canal stenosis or significant neural foraminal narrowing. L4-L5: Disc prosthesis. There is residual disc material along the posterior margin of the annulus wit h slight superior disc migration. There is severe central canal stenosis secondary to disc material and aforementioned postoperative fluid collection. At the L4-L5 disc space, there is severe stenosis, best demonstrated on the sagittal images. There is a right-sided partial facetectomy. Moderate right and [id number] left neural foraminal narrowing are suspected. L5-S1: Disc desiccation with mild loss of disc space height. Posterior laminectomy defect. Broad-base d disc bulge abuts the thecal sac. There is a postoperative fluid collection which causes mass effect upon the thecal sac. There is severe central canal stenosis. There is disc material in the rig ht subarticular zone with partial obscuration of the traversing right S1 nerve root. Mild to moderate bilateral neural foraminal foraminal narrowing. There is moderate distention of the urinary bladder. Encourage spontaneous voiding. Consider evaluati ng post-void residual if there is concern for incomplete emptying of the bladder. IMPRESSION: 1. Bilateral transpedicular screws at L4 and L5. Laminectomy defect at L4 and L5. There is severe francisco tral canal stenosis at L4 and L5 secondary to a T2 hyperintense fluid collection. Postoperative changes are favored given lack of complete enhancement. Developing abscess cannot be entirely exclude d. 2. Residual disc material in the posterior annulus at L4-L5. 3. Varying degrees of neural foraminal stenosis as detailed above. 4. Prominent urinary bladder. Results of the thoracic spine MRI and lumbar spine MRI discussed with Dr. Carrillo on 02/16/2020 at 8:44 AM. CODE CR. Transcribed Date/Time: 02/16/2020 9:39 AM
[2020-02-16] MEDS ORDERED: Ondansetron PF 4 MG/2 ML Vial IVP PRN (11:16)
[2020-02-16] MEDS ORDERED: Ondansetron ODT 4 MG TAB PO PRN (11:17)
[2020-02-16 11:37] VITALS: BMI 34.8
[2020-02-16] MEDS ORDERED: Senokot S 8.6-50 MG TAB PO PRN (11:58)
[2020-02-16] MEDS ORDERED: Acetaminophen 325 MG TAB PO PRN (11:58)
[2020-02-16] MEDS ORDERED: HYDROcodone/Acetaminophen 5/325 mg Tablet PO PRN (11:58)
[2020-02-16] MEDS ORDERED: Dextrose 50% Abboject 50 ML SYRINGE SLOW IVP PRN (12:03)
[2020-02-16] MEDS ORDERED: Dextrose 5% in Water 1,000 ML IV PRN (12:03)
[2020-02-16] MEDS ORDERED: HumaLOG 300 UNITS/3 ML VIAL SC PRN (12:03)
--- NOTE | 2020-02-16 12:14 | PDOC.HHP ---
Hospitalist HPI - History of Present Illness Fever History of Present Illness: Patient is a 59-year-old female who has a history of some right knee pain following surgical procedure. She subsequently had some lumbar spinal stenosis with some pain tingling and numbness in her lower extremities. She underwent a lumbar laminectomy a few days ago. Subsequently she did fairly well and was discharged home. Yesterday the patient was having more lower back pain. He also developed some generalized chills and took her temperature and noted that she was fairly febrile. Her temperature got up over 102 and she came to the emergency department for further evaluation. Other than her back pain which she describes as more of a spasm type pain, she says she is not having any other specific symptoms of infection. She has no shortness of breath or cough. No dysuria etc. She is having regular bowel movements thus far. ED Course: Patient initially presented to an outside emergency department where she was found to be moderately hypotensive. She did respond well to fluid resu scitation. She had a slight elevation of her white count qualified for sepsis criteria and was treated empirically with broad-spectrum antibiotics. There were no findings on her chest x-ray or other labs to suggest any specific source of infection. She was subsequently transferred to this facility for further work-up and admission. She has received vancomycin and cefepime. MRI of the lumbar spine did reveal some fluid collection. ER physician spoke with neurosurgery who felt like this was normal postoperative fluid collection and did not represent abscess or hematoma. Hospitalist ROS - Review of Systems Constitutional: reports: fever, chills, malaise Respiratory: denies: cough, shortness of breath Cardiovascular: denies: chest pain, palpitations Gastrointestinal: denies: nausea, vomiting, abdominal pain, diarrhea, constipation Genitourinary: denies: dysuria, frequency Musculoskeletal: reports: back pain Skin: denies: rash, lesions All other systems reviewed; all pertinent +/- noted in HPI/Subj - Medication Medications: Omeprazole 40 mg PO QAM 07/20/18 Pramipexole Di-HCl [Mirapex] 2 mg PO HS 07/20/18 metFORMIN [Glucophage] 500 mg PO DAILY 07/20/18 Albuterol Sulfate [Albuterol Sulfate Hfa] 2 puff INH ASDIR PRN 09/09/18 Ascorbic Acid [C-1000] 1 tab PO DAILY 09/09/18 Cholecalciferol (Vitamin D3) [Vitamin D3] 5,000 unit PO DAILY 09/09/18 SUMAtriptan Succinate [Imitrex] 100 mg PO Q2HR PRN 09/09/18 Naproxen [Naprosyn] 500 mg PO BID 12/06/18 HYDROcodone Bit/APAP 10/325 [[place]] 2 tab PO Q6HR PRN 02/10/20 Losartan Potassium 100 mg PO QAM 02/10/20 Simvastatin 10 mg PO HS 02/10/20 Hospitalist History - Past Medical History Source: patient, old records Gastrointestinal: reports: Irritable bowel disease Endocrine: reports: Diabetes - Past Surgical History Past Surgical History: reports: Appendectomy, Cholecystectomy, Hysterectomy, Total Knee Replacement (Right) Other Surgical History: Colon resection secondary to colon cancer, right BAILEY on 12/07/2018. - Family History Other Family History: Father is . He had kidney disease, diabetes, hypertension, heart disease, lupus. Mother is living with thyroid disease and arthritis. - Social History Smoking Status: Former smoker (Quit in 2006) Alcohol: reports: None Living Situation: Alone Other Social History: Patient is . She is full code. Her would be her surrogate decision maker should that be necessary. - Exam General Appearance: NAD, awake alert Neck: supple, symmetric, no JVD, no thyromegaly, no lymphadenopathy, no carotid bruit Heart: RRR, no murmur, no gallops, no rubs, normal peripheral pulses Respiratory: CTAB, no wheezes, no rales, no ronchi, normal chest expansion, no tachypnea, normal percussion Gastrointestinal: soft, non-tender, non-distended, normal bowel sounds, no palpable masses, no hepatomegaly, no splenomegaly, no bruit Extremities: no cyanosis, no clubbing, no edema Skin: normal turgor, no lesions, no rashes Neurological: cranial nerve grossly intact, normal sensation to touch, no weakness, no focal deficits, no new deficit Musculoskeletal: normal tone, normal strength, no muscle wasting Psychiatric: normal affect, normal behavior, A&O x 3 Hospitalist Results - Labs Result Diagrams: 02/16/20 04:51 Lab results: WBC 10.4 thou/uL (4.8-10.8) 02/16/20 04:51 Hgb 6.8 g/dL (12.0-16.0) L 02/16/20 04:51 Hct 22.8 % (36.0-47.0) L 02/16/20 04:51 MCV 80.0 fL (78.0-98.0) 02/16/20 04:51 Plt Count 182 thou/uL (130-400) 02/16/20 04:51 Neutrophils % 77.9 % (42.0-75.0) H 02/16/20 04:51 - Radiology Interpretation Other Status: report reviewed by me Additional Comment: MRI lumbar spine: IMPRESSION: 1. Bilateral transpedicular screws at L4 and L5. Laminectomy defect at L4 and L5. There is severe central canal stenosis at L4 and L5 secondary to a T2 hyperintense fluid collection. Postoperative changes are favored given lack of complete enhancement. Developing abscess cannot be entirely excluded. 2. Residual disc material in the posterior annulus at L4-L5. 3. Varying degrees of neural foraminal stenosis as detailed above. 4. Prominent urinary bladder. MRI T-spine: IMPRESSION: 1. No evidence of a postoperative fluid collection/epidural abscess. 2. Nonspecific bilateral pleural effusions. Hospitalist H&P A/P - Problem (1) Sepsis Code(s): A41.9 - SEPSIS, UNSPECIFIED ORGANISM Status: Acute (2) Anemia Code(s): D64.9 - ANEMIA, UNSPECIFIED Status: Acute (3) Postoperative back pain Code(s): G89.18 - OTHER ACUTE POSTPROCEDURAL PAIN Status: Acute (4) Diabetes mellitus type 2 in obese Code(s): E11.69 - TYPE 2 DIABETES MELLITUS WITH OTHER SPECIFIED COMPLICATION; E66.9 - OBESITY, UNSPECIFIED Status: Chronic (5) GERD (gastroesophageal reflux disease) Code(s): K21.9 - GASTRO-ESOPHAGEAL REFLUX DISEASE WITHOUT ESOPHAGITIS Status: Chronic (6) Kidney disease, chronic, stage III (GFR 30-59 ml/min) Code(s): N18.30 - CHRONIC KIDNEY DISEASE, STAGE 3 UNSPECIFIED Status: Acute - Plan Plan: Sepsis of unknown origin: Patient is recently postoperative. She had a lumbar laminectomy. She continues to have some back pain however MRI reviewed by neurosurgery was not suspicious for infection or abscess. Other work-up thus far has been unrevealing as well. Chest x-ray was clear, urinalysis negative. Cultures pending. Continue empiric therapy with vancomycin and cefepime. She had fluid resuscitation and currently her blood pressure appears to be stabilized. Anemia: Patient has some chronic anemia that she was unaware of. She says she was on iron tablets at 1 point in her life. Will check labs including B12, folate, iron studies, reticulocyte count. She will receive 1 unit of packed red blood cells. Postoperative low back pain: Patient's MRI was reviewed by neurosurgery. Will consult them for further input. In the meantime we will treat with p.o. and IV pain medications and muscle relaxers. PT consult. Diabetes mellitus: Continue her Metformin. Sliding scale insulin, Accu-Cheks. CKD stage III: Appears to be at her stable baseline GFR.
[2020-02-16] MEDS: Sodium Chloride 0.9% 1,000 ML IV SCH (12:17)
[2020-02-16] MEDS: HYDROcodone/Acetaminophen 5/325 mg Tablet PO PRN ×3 (12:21→21:08)
[2020-02-16] MEDS: tiZANidine HCl 4 MG TAB PO PRN ×2 (12:21→21:08)
[2020-02-16] MEDS: Cefepime 1 GM in Sodium Chloride 0.9% 100 ML IVPB SCH (12:35)
[2020-02-16 13:16] LABS: Hemoglobin 8.2 g/dL (12.0-16.0)
[2020-02-16 13:17] LABS: Reticulocyte Count 1.8 % (0.5-1.5)
[2020-02-16 13:37] LABS: Iron 58 ug/dL (50-170); Iron Binding Capacity, Total 289 mcg/dL (265-497)
[2020-02-16] MEDS: Vancomycin 1 GM in Premix Bag 1 BAG IVPB SCH (14:02)
[2020-02-16 14:07] LABS: SARS-CoV-2 MS2 Positive; SARS-CoV-2 N Gene Negative; SARS-CoV-2 S Gene Negative; SARS-CoV-2 by NAA Not Detected (NotDetected); SARS-CoV-2 orf1ab Negative
[2020-02-16] MEDS ORDERED: Magnevist 469MG/ML 20 ML VIAL ONE (14:46)
[2020-02-16] MEDS ORDERED: Famotidine 20 MG TAB PO SCH (21:00)
--- NOTE | 2020-02-16 23:20 | ULT ---
ULTRASOUND DOPPLER DUPLEX VENOUS LEFT LOWER EXTREMITY: DATE: 02/16/2020 HISTORY: 59-year-old female with left lower extremity pain TECHNIQUE: Grayscale, color-flow, and spectral analysis, of major veins of left lower extremity. FINDINGS: There is demonstration of blood flow with normal compressibility, of the left common femoral, profund a femoral, greater saphenous, femoral, popliteal, and posterior tibial, veins. IMPRESSION: Negative. No deep venous thrombosis of left lower extremity.
[2020-02-17] MEDS: Cefepime 1 GM in Sodium Chloride 0.9% 100 ML IVPB SCH ×2 (00:30→12:18)
--- NOTE | 2020-02-17 01:37 | CON ---
DATE OF CONSULTATION: 02/16/2020 CHIEF COMPLAINT: Fever. HISTORY OF PRESENT ILLNESS: Ms. Lopez is a 59-year-old female who presented to [place] due to a fever of 101 degrees Fahrenheit. She was found to be hypotensive and with fever. She had a hemoglobin of 6.8 and was transferred to [facility]. She was ruled out for UTI and atelectasis as well as pulmonary embolism. Blood cultures were collected before antibiotics were started in [place]. Neurosurgery was called because of fluid noted on the MRI scan which could represent infection/abscess. When I saw Ms. Lopez, she was comfortably eating her dinner, in no acute pain. She did complain of some left leg, knee pain without weakness. She is moving all extremities and no acute pain. She tells me she received vancomycin and cefepime at [place] for her fever of unknown origin. She also reports she was transfused 2 units of blood due to her low hemoglobin of 6.8. REVIEW OF SYSTEMS: CONSTITUTIONAL: Reports fever and chills. ENT: Denies change in vision or hearing. CARDIAC: Denies chest pain, shortness of breath, or diaphoresis. PULMONARY: Denies shortness of breath, cough, or hemoptysis. GI: Denies abdominal pain, nausea, vomiting, diarrhea, change in stool formation and consistency. : Denies trouble with urination, frequency of urination, or bloody urine. SKIN: Denies skin rash, bruising, bleeding, or skin masses. MUSCULOSKELETAL: As per history of present illness. NEUROLOGIC: As per history of present illness. PSYCHOLOGIC: Denies anxiety, depression, or behavior changes. MEDICATIONS: 1. Simvastatin 10 mg. 2. Losartan 100 mg. 3. Hydrocodone/acetaminophen 10/325 mg. 4. Naproxen 500 mg. 5. Sumatriptan 100 mg. 6. Vitamin D3 of 5000 international units. 7. Ascorbic acid 1000 mg. 8. Albuterol sulfate 90 mcg. 9. Metformin 50 mg. 10. Mirapex 2 mg. 11. Omeprazole 40 mg. ALLERGIES: KLONOPIN, GABAPENTIN, PENICILLIN, LYRICA, BACTRIM, CALCIUM NITRATE. PAST MEDICAL HISTORY: Ovarian cyst, endometriosis, colon cancer. PAST SURGICAL HISTORY: Hysterectomy, gallbladder surgery in 1999, appendectomy in 2004, rectocele in 2007, colon resection in 2009, RT TKR in 2019, RT BAILEY in 2019, laminectomy L4-S1 and TLIF L4-L5 on 02/14/2020, ovarian cyst removed in 1989. HOSPITALIZATIONS: Above surgeries. FAMILY HISTORY: Father , kidney problems, diabetes, high blood pressure, heart disease, lupus. Mother alive, heart murmur, thyroid disease, osteoarthritis. SOCIAL HISTORY: Former smoker, quit in 2006. Denies alcohol use or illicit drug use. PHYSICAL EXAMINATION: VITAL SIGNS: Blood pressure 111/69, heart rate 85, and temperature 102.3. HEENT: Pupils are equal. Extraocular movements are intact. NECK: Soft and supple. No masses are noted. Range of motion is intact and nonpainful. NEUROLOGIC: Awake, alert, and oriented x3. Memory, attention, fund of knowledge are normal. Cranial nerves are grossly intact. EXTREMITIES: Free active range of motion in all extremities. No focal motor weakness. No reflex asymmetry. Incision, clean and dry, there is no erythema, edema, or drainage. LABORATORY DATA: WBC 10.4, red blood cells 2.86, hemoglobin 8.2, hematocrit 22.8, platelets 182. PT 15.1, INR 1.2, PTT 45.8. Sodium 136, BUN 25, and creatinine 1.35. Urinalysis, only positive for protein. ASSESSMENT: 1. Sepsis. 2. Anemia. 3. Minimal postoperative back pain. PLAN: Ms. Lopez is 2 days postop from laminectomy L4-L5, L5-S1 and a TLIF at L4- L5. She continues to have some minor lower back pain, which is to be expected two days out from spine surgery. We used vancomycin powder and bacitracin in irrigation. Patient received 24 hrs of antibiotics post op. Wound is much too early to show signs of infection noted on MRI. All postop films will have fluid collections. Ms. Lopez has been ruled out for urinary tract infection, atelectasis, and pulmonary embolism at [place] . She does have some pain in her left leg and knee. I do not see a venous Doppler ultrasound that has been ordered. We will order a Doppler ultrasound to make sure there is no DVT. Job ID: [id number] [id number]
[2020-02-17] MEDS: HYDROcodone/Acetaminophen 5/325 mg Tablet PO PRN ×4 (04:36→17:48)
[2020-02-17] MEDS: Sodium Chloride 0.9% 1,000 ML IV SCH ×2 (04:38→15:35)
--- NOTE | 2020-02-17 07:35 | PRG ---
DATE OF SERVICE: 02/17/2020 I personally interviewed and examined the patient, agreed with documentation of Lokesh Martinez PA-C, dated 02/17/2020. Briefly, Lolly Lopez returned to [facility] on postoperative day 3 after decompression fusion of lumbar spine. She complained of increasing back pain and fever at home. She was still ambulatory. The emergency department physician ordered an MRI scan, which showed the expected changes after surgery. During the operation, her wound was treated with vancomycin powder. Postoperative day 3 is too early for wound infection. Since admission, she has had fever up to 102.3 degrees Fahrenheit. This morning, she feels frustrated, but not terribly sick. She has good motion in all 4 extremities. She has no new numbness or weakness in lower extremities. The back is sore. The wound looks good. An ultrasound only of the left lower extremity was done and is negative. Urinalysis and urine culture were ordered this morning, but is not complete. She is not yet using Voldyne incentive spirometer. She has been in the room, but not walking in the hallways. My plan is for aggressive mobilization. If she needs a blood transfusion to tolerate the more aggressive mobilization, tranfusing another unit or 2 would be fine. Urine culture and urinalysis have been ordered and is pending. She needs to use Voldyne incentive spirometer 10 times an hour while she is awake. With aggressive mobilization, I think she will improve faster. We will continue to follow while she is here. Job ID: [id number] [facility]
[2020-02-17 08:00] LABS: #Basophils 0.1 thou/uL (0.0-0.2); #Eosinphils 0.5 thou/uL (0.0-0.7); #Lymphocytes 1.4 thou/uL (1.20-3.40); #Monocytes 0.6 thou/uL (0.11-0.59); #Neutrophils 6.3 thou/uL (1.40-6.50); %Basophils 0.6 % (0.0-1.0); %Eosinophils 5.6 % (0.0-10.0); %Monocytes 6.5 % (0.0-10.0); %Neutrophils 71.2 % (42.0-75.0); Hemoglobin 7.8 g/dL (12.0-16.0); Mean Corpuscular HGB CONC 32.2 g/dL (32.0-36.0); Mean Corpuscular Volume 80.7 fL (78.0-98.0); Mean Platelet Volume 9.3 fL (7.4-10.4); Platelet Count 206 thou/uL (130-400); RBC Distribution Width 14.5 % (11.5-14.5); Red Blood Cell (RBC) Count 2.99 mill/uL (4.20-5.40); White Blood Cell (WBC) Count 8.8 thou/uL (4.8-10.8)
[2020-02-17 08:05] LABS: Anion Gap 11 mmol/L (10-20); BUN (Urea Nitrogen) 20 mg/dL (9.8-20.1); Calc. Creatinine Clearance 89 mL/min (70-130); Calcium 8.6 mg/dL (7.8-10.44); Carbon Dioxide 23 mmol/L (23-31); Chloride 108 mmol/L (98-107); Estimated GFR-MDRD 65; Glucose 101 mg/dL (80-115); Potassium 4.3 mmol/L (3.5-5.1); Sodium 138 mmol/L (136-145)
--- NOTE | 2020-02-17 08:37 | ULT ---
EXAM: Right lower extremity venous ultrasound HISTORY: Right lower extremity pain and edema: Immobility with recent back surgery COMPARISON: None TECHNIQUE: Multiplanar grayscale and color Doppler images were obtained in a right lower extremity ve nous ultrasound. Spectral analysis of the Doppler waveforms were performed. FINDINGS: The common femoral vein, profunda femoral vein, superficial femoral vein, and popliteal vei n are normal in appearance without visible thrombus. These vessels demonstrate normal compression, flow, and augmentation. The posterior tibial vein and greater saphenous vein are patent without evidence of thrombus. IMPRESSION: No evidence of DVT.
[2020-02-17 09:21] LABS: Bacteria/HPF None Seen HPF (None Seen); Bilirubin Negative (Negative); Blood, Urine Negative (Negative); Clarity Clear (Clear); Glucose, Urine (Dipstick) Normal (Negative); Ketone, Urine Negative (Negative); Leukocyte 25 Leu/uL (Negative); Nitrite Negative (Negative); Protein, Urine (Dipstick) 20 mg/dL (Neg-Trace); RBC/HPF 0-3 HPF (0-3); Specific Gravity, Urine 1.019 (1.002-1.036); Urobilinogen Normal mg/dL (Less than 2); WBC/HPF 0-3 HPF (0-3); pH, Urine 5.5 (5.0-9.0)
[2020-02-17] MEDS: tiZANidine HCl 4 MG TAB PO PRN ×2 (10:18→21:13)
[2020-02-17] MEDS ORDERED: Prevnar 13-Val Conj/PF 0.5 ML SYRINGE IM ONE (12:30)
[2020-02-17] MEDS: Vancomycin 1 GM in Premix Bag 1 BAG IVPB SCH (13:32)
[2020-02-17] MEDS ORDERED: Pramipexole Di-HCl 1 MG TAB PO SCH (15:00)
--- NOTE | 2020-02-17 18:12 | PDOC.HOSPP ---
- Subjective Encounter Date: 02/17/20 Subjective: No fever this morning. The patient is complaining of spasms in her lower extremities. - Objective Vital Signs & Weight: Vital Signs (12 hours) Temp Pulse Pulse Pulse Resp BP BP 02/17/20 15:42 98.9 F 87 18 02/17/20 15:19 87 88 127/74 133/76 02/17/20 11:00 99.2 F 75 20 02/17/20 08:00 02/17/20 07:00 99.3 F 90 20 BP Pulse Ox Pulse Ox Pulse Ox 02/17/20 15:42 127/74 99 02/17/20 15:19 99 97 02/17/20 11:00 98/60 96 02/17/20 08:00 97 02/17/20 07:00 131/68 97 Weight Weight 184 lb 5 oz I&O: 02/16/20 02/17/20 02/18/20 06:59 06:59 06:59 Intake Total 1251 1275 Balance 1251 1275 Result Diagrams: 02/17/20 07:17 02/17/20 07:17 Additional Labs: Accuchecks 02/17/20 02/17/20 02/17/20 16:01 11:18 05:05 POC Glucose 100 137 H 92 02/16/20 02/16/20 22:42 19:36 POC Glucose 118 H 140 H Hospitalist ROS - Medication Medications: Active Medications Generic Name Dose Route Start Last Admin Trade Name Freq PRN Reason Stop Dose Admin Hydrocodone Bitart/Acetaminophen 2 tab 02/16/20 11:58 02/17/20 17:48 Hydrocodone/Acetaminophen 5/325 Mg Tablet PO 2 tab Q4H PRN Administration Severe Pain (7-10) Sodium Chloride 1,000 mls @ 75 mls/hr 02/16/20 12:00 02/17/20 15:35 Normal Saline 0.9% IV Not Given .[id number] LILLIE Vancomycin HCl 1 gm/ Device 200 mls @ 166.67 mls/hr 02/16/20 13:00 02/17/20 13:32 IVPB 200 mls 1300 LILLIE Administration Cefepime HCl 1 gm/ Sodium 100 mls @ 200 mls/hr 02/16/20 13:00 02/17/20 12:18 Chloride IVPB 100 mls 0100,1300 LILLIE Administration Pantoprazole Sodium 40 mg 02/17/20 09:00 02/17/20 09:45 Pantoprazole 40 Mg Tab PO 40 mg DAILY LILLIE Administration Sodium Chloride 10 ml 02/16/20 21:00 02/17/20 09:45 Flush - Normal Saline 10 Ml Syringe IVF 10 ml Q12HR LILLIE Administration Tizanidine HCl 4 mg 02/16/20 12:05 02/17/20 10:18 Tizanidine Hcl 4 Mg Tab PO 4 mg BIDPRN PRN Administration Muscle Spasm - Exam General Appearance: awake alert ENT: normocephalic atraumatic Neck: supple, no JVD Heart: RRR Respiratory: normal chest expansion, no tachypnea Gastrointestinal: soft Extremities: no cyanosis, no clubbing Neurological: cranial nerve grossly intact, no focal deficits Hosp A/P (1) Fever Code(s): R50.9 - FEVER, UNSPECIFIED Status: Acute (2) Kidney disease, chronic, stage III (GFR 30-59 ml/min) Code(s): N18.30 - CHRONIC KIDNEY DISEASE, STAGE 3 UNSPECIFIED Status: Acute (3) Diabetes mellitus type 2 in obese Code(s): E11.69 - TYPE 2 DIABETES MELLITUS WITH OTHER SPECIFIED COMPLICATION; E66.9 - OBESITY, UNSPECIFIED Status: Chronic (4) GERD (gastroesophageal reflux disease) Code(s): K21.9 - GASTRO-ESOPHAGEAL REFLUX DISEASE WITHOUT ESOPHAGITIS Status: Chronic (5) Restless leg syndrome Status: Chronic - Plan The patient is afebrile today. No source of infection was identified. No evidence of DVT. Postoperative fever can sometimes be caused by atelectasis. Encourage mobilization and incentive spirometry. Restart her home medications for restless leg syndrome.
[2020-02-17] MEDS: Morphine 2 MG/ML VIAL SLOW IVP PRN (22:05)
[2020-02-18] MEDS: HYDROcodone/Acetaminophen 5/325 mg Tablet PO PRN ×3 (01:53→13:36)
[2020-02-18] MEDS: Cefepime 1 GM in Sodium Chloride 0.9% 100 ML IVPB SCH ×3 (01:54→15:23)
[2020-02-18] MEDS: Sodium Chloride 0.9% 1,000 ML IV SCH (04:09)
[2020-02-18] MEDS: Morphine 2 MG/ML VIAL SLOW IVP PRN ×3 (04:10→20:38)
[2020-02-18 07:36] LABS: #Eosinphils 0.4 thou/uL (0.0-0.7); #Lymphocytes 1.2 thou/uL (1.20-3.40); #Monocytes 0.6 thou/uL (0.11-0.59); #Neutrophils 3.6 thou/uL (1.40-6.50); %Basophils 0.4 % (0.0-1.0); %Eosinophils 7.4 % (0.0-10.0); %Lymphocytes 20.5 % (21.0-51.0); %Monocytes 10.7 % (0.0-10.0); Hemoglobin 7.3 g/dL (12.0-16.0); Mean Corpuscular HGB CONC 32.2 g/dL (32.0-36.0); Mean Corpuscular Hemoglobin 26.3 pg (27.0-31.0); Mean Corpuscular Volume 81.6 fL (78.0-98.0); Mean Platelet Volume 8.6 fL (7.4-10.4); Platelet Count 207 thou/uL (130-400); RBC Distribution Width 14.7 % (11.5-14.5); Red Blood Cell (RBC) Count 2.78 mill/uL (4.20-5.40)
[2020-02-18 08:00] LABS: ALT (SGPT) 28 U/L (8-55); AST (SGOT) 35 U/L (5-34); Alkaline Phosphatase 134 U/L (40-110); Anion Gap 13 mmol/L (10-20); BUN (Urea Nitrogen) 14 mg/dL (9.8-20.1); Bilirubin, Total 0.4 mg/dL (0.2-1.2); Calc. Creatinine Clearance 100 mL/min (70-130); Calcium 8.8 mg/dL (7.8-10.44); Carbon Dioxide 22 mmol/L (23-31); Chloride 107 mmol/L (98-107); Estimated GFR-MDRD 75; Globulin 3.3 g/dL (2.4-3.5); Glucose 98 mg/dL (80-115); Magnesium 1.6 mg/dL (1.6-2.6); Potassium 4.3 mmol/L (3.5-5.1); Protein, Total 6.3 g/dL (6.0-8.3); Sodium 138 mmol/L (136-145)
[2020-02-18] MEDS: tiZANidine HCl 4 MG TAB PO PRN ×2 (09:19→23:42)
--- NOTE | 2020-02-18 09:23 | PRG ---
DATE OF SERVICE: 02/18/2020 SUBJECTIVE: Patient is now five days status post lumbar decompression and fusion. She returned to the hospital for issues with hypotension, anemia, and fever. She was transfused 2 units, but has continued to have issues with anemia with a new hemoglobin this morning of 7.3. There is no obvious source of bleeding. Her fecal occult was negative. She continues to run fever overnight up to as high as 101.7. Her white count remains normal and there is no clear source of infection. Her chest x-ray has been negative and her urine is unremarkable. OBJECTIVE: VITAL SIGNS: On exam this morning, patient is currently afebrile. GENERAL: She is in no acute distress. She is somewhat pale. MUSCULOSKELETAL: She has free active range of motion of all extremities. No focal motor weakness. Incision is clean, dry, and intact. Unfortunately, patient continues to be generally weak and at times somewhat symptomatic likely from her ongoing anemia. She may benefit from additional transfusion. We will continue to follow along with the Medicine Team as they continue to work her up for her symptomatic anemia and fever of unknown origin. I feel that it is quite unlikely that her surgical site is source of infection as she was treated with IV antibiotics, vancomycin powder, and it will be quite unusual to develop a wound infection. Additionally, there are no signs of infection at her wound. We will continue to follow along. Job ID: [id number]
[2020-02-18] MEDS ORDERED: Albuterol Sulfate 2.5 mg/3 ml Neb NEB PRN (10:13)
--- NOTE | 2020-02-18 10:30 | PDOC.HOSPP ---
- Subjective Encounter Date: 02/18/20 (f/u fever) Encounter Time: 10:28 Subjective: Pt reports her back feels sore from surgery and she is having muscle spasms - reports both responding to meds. She denies any chest pain/n/v. She also denies any change in stool. About 2 weeks ago she reports having diarrhea and inflammation of hemorrhoids with some rectal bleeding, but none since surgery. - Objective Vital Signs & Weight: Vital Signs (12 hours) Temp Pulse Resp BP BP Pulse Ox 02/18/20 07:20 99.2 F 87 20 146/82 H 98 02/18/20 04:00 99.3 F 83 20 132/73 96 02/18/20 02:01 101.6 F H 02/18/20 00:00 99.4 F 75 20 113/73 97 Weight Weight 184 lb 5 oz I&O: 02/17/20 02/18/20 02/19/20 06:59 06:59 06:59 Intake Total 1251 1275 Balance 1251 1275 Result Diagrams: 02/18/20 07:23 02/18/20 07:23 Additional Labs: Accuchecks 02/18/20 02/17/20 02/17/20 04:50 20:00 16:01 POC Glucose 104 H 121 H 100 02/17/20 11:18 POC Glucose 137 H Hospitalist ROS - Medication Medications: Active Medications Generic Name Dose Route Start Last Admin Trade Name Freq PRN Reason Stop Dose Admin Hydrocodone Bitart/Acetaminophen 2 tab 02/16/20 11:58 02/18/20 06:42 Hydrocodone/Acetaminophen 5/325 Mg Tablet PO 2 tab Q4H PRN Administration Severe Pain (7-10) Vancomycin HCl 1 gm/ Device 200 mls @ 166.67 mls/hr 02/16/20 13:00 02/17/20 13:32 IVPB 200 mls 1300 LILLIE Administration Cefepime HCl 1 gm/ Sodium 100 mls @ 200 mls/hr 02/16/20 13:00 02/18/20 01:54 Chloride IVPB 100 mls 0100,1300 LILLIE Administration Morphine Sulfate 2 mg 02/16/20 12:05 02/18/20 04:10 Morphine 2 Mg/Ml Vial SLOW IVP 2 mg Q4H PRN Administration Moderate to Severe Pain (6-10) Pantoprazole Sodium 40 mg 02/17/20 09:00 02/18/20 09:17 Pantoprazole 40 Mg Tab PO 40 mg DAILY LILLIE Administration Sodium Chloride 10 ml 02/16/20 21:00 02/18/20 09:25 Flush - Normal Saline 10 Ml Syringe IVF Not Given Q12HR LILLIE Tizanidine HCl 4 mg 02/16/20 12:05 02/18/20 09:19 Tizanidine Hcl 4 Mg Tab PO 4 mg BIDPRN PRN Administration Muscle Spasm - Exam General Appearance: NAD Heart: RRR, no murmur Respiratory: CTAB, no wheezes, no rales, no ronchi Gastrointestinal: soft, non-tender, non-distended, normal bowel sounds Extremities: no cyanosis, no clubbing, no edema Neurological - other findings: no focal deficits Psychiatric: normal affect Hosp A/P (1) Anemia Code(s): D64.9 - ANEMIA, UNSPECIFIED Status: Acute Qualifiers: Anemia type: unspecified type Qualified Code(s): D64.9 - Anemia, unspecified (2) Fever Code(s): R50.9 - FEVER, UNSPECIFIED Status: Acute (3) Postoperative back pain Code(s): G89.18 - OTHER ACUTE POSTPROCEDURAL PAIN Status: Acute (4) Diabetes mellitus type 2 in obese Code(s): E11.69 - TYPE 2 DIABETES MELLITUS WITH OTHER SPECIFIED COMPLICATION; E66.9 - OBESITY, UNSPECIFIED Status: Chronic (5) GERD (gastroesophageal reflux disease) Code(s): K21.9 - GASTRO-ESOPHAGEAL REFLUX DISEASE WITHOUT ESOPHAGITIS Status: Chronic (6) Restless leg syndrome Status: Chronic (7) CHEKO (acute kidney injury) Code(s): N17.9 - ACUTE KIDNEY FAILURE, UNSPECIFIED Status: Resolved - Plan Fever - urine and blood cx neg from Jan - uncertain source - continue mobilizing - appreciate NS monitoring Anemia - improved post 1 unit prbc, however worse today. No signs of active bleeding - transfuse another 1 unit today - GI consult - continue daily PPI DM - controlled RLS and muscle spasms - continue current meds dvt prophy - scd's and ambulatory gi prophy - on PPI daily code status full anticipate another 24 hours of abx and trending fever curve, GI input and monitoring hb. Reviewed plan of care with patient, no questions or further need s at end of eval.
--- NOTE | 2020-02-18 11:18 | PRG ---
DATE OF SERVICE: 02/18/2020 This patient was seen and examined. She is up on the side of the bed, quite comfortable with minimal complaints. I inspected her wound and it is clean, dry, and intact. We will remove the dressing and leave it open to air. The patient was readmitted for her fever and anemia, which persist. She has no obvious focus of infection or elevated white count. At this stage, the etiology of the fever and anemia is unclear on different medicine in this regard and we will continue to follow. Job ID: [id number]
[2020-02-18 14:39] LABS: Vancomycin, Trough 6.1 ug/mL
[2020-02-18] MEDS: Vancomycin 1 GM in Premix Bag 1 BAG IVPB SCH (14:49)
[2020-02-18] MEDS: Vancomycin HCl 750 MG in Sodium Chloride 0.9% 250 ML 250 ML IVPB SCH (16:11)
[2020-02-18] MEDS ORDERED: Lidocaine 2% Viscous Solution 10 ML, Aluminum & Magnesium Hydroxide 30 ML SSW SCH (20:15)
--- NOTE | 2020-02-18 20:16 | PDOC.EVN ---
Event Note - Event Note Event Note: Notified by RN, patient with complaints of chest pain. States she has been getting half of the protonix she normally takes at home. BP 150s systolic. EKG ordered. Patient being given Morphine. Protonix increased to 40 mg BID. GI Cocktail ordered. Labs ordered including serial troponin.
[2020-02-18] MEDS: Pramipexole Di-HCl 1 MG TAB PO SCH (20:37)
[2020-02-18 21:45] LABS: Anion Gap 15 mmol/L (10-20); Carbon Dioxide 21 mmol/L (23-31); Chloride 105 mmol/L (98-107); Potassium 4.3 mmol/L (3.5-5.1); Sodium 137 mmol/L (136-145)
[2020-02-19] MEDS: Cefepime 1 GM in Sodium Chloride 0.9% 100 ML IVPB SCH ×2 (01:55→13:49)
[2020-02-19] MEDS: HYDROcodone/Acetaminophen 5/325 mg Tablet PO PRN ×4 (01:59→20:41)
[2020-02-19] MEDS: Vancomycin HCl 750 MG in Sodium Chloride 0.9% 250 ML 250 ML IVPB SCH ×2 (04:00→15:57)
[2020-02-19] MEDS: Morphine 2 MG/ML VIAL SLOW IVP PRN (04:23)
[2020-02-19 06:11] LABS: #Basophils 0.1 thou/uL (0.0-0.2); #Eosinphils 0.5 thou/uL (0.0-0.7); #Lymphocytes 1.3 thou/uL (1.20-3.40); #Monocytes 0.6 thou/uL (0.11-0.59); #Neutrophils 3.4 thou/uL (1.40-6.50); %Eosinophils 8.1 % (0.0-10.0); %Lymphocytes 22.2 % (21.0-51.0); %Monocytes 9.8 % (0.0-10.0); %Neutrophils 58.9 % (42.0-75.0); Mean Corpuscular HGB CONC 32.7 g/dL (32.0-36.0); Mean Corpuscular Hemoglobin 26.8 pg (27.0-31.0); Mean Platelet Volume 8.6 fL (7.4-10.4); Platelet Count 226 thou/uL (130-400); RBC Distribution Width 15.2 % (11.5-14.5); Red Blood Cell (RBC) Count 3.36 mill/uL (4.20-5.40); White Blood Cell (WBC) Count 5.7 thou/uL (4.8-10.8)
[2020-02-19 06:31] LABS: Anion Gap 13 mmol/L (10-20); BUN (Urea Nitrogen) 13 mg/dL (9.8-20.1); Calc. Creatinine Clearance 94 mL/min (70-130); Carbon Dioxide 24 mmol/L (23-31); Chloride 105 mmol/L (98-107); Estimated GFR-MDRD 70; Glucose 134 mg/dL (80-115); Potassium 4.1 mmol/L (3.5-5.1); Sodium 138 mmol/L (136-145)
[2020-02-19 06:57] LABS: Troponin I Less than 0.010 ng/mL (< 0.028)
[2020-02-19] MEDS: tiZANidine HCl 4 MG TAB PO PRN (09:11)
--- NOTE | 2020-02-19 09:29 | PRG ---
DATE OF SERVICE: The patient is now 6 days status post her lumbar decompression and fusion by Dr. Kelley. She had an additional transfusion yesterday for her symptomatic anemia. Her hemoglobin has improved from 7.3 to 9 today. There remains no obvious source of bleeding. She reports she did visit with the GI team and they have considered scope down the road, but nothing in the near future. She continues to run a low-grade fever up to 100.3 last night. On exam, she is somewhat uncomfortable this morning, but she is due for pain medicine. I inspected her incision and it remains clean, dry, intact with no signs of infection. She is moving easily in the bed and has no focal motor weakness. She continues to run fever of unclear etiology as well as have issues with anemia. We will continue to defer these to the medical team and follow along. Job ID: [id number] MTDD
--- NOTE | 2020-02-19 09:54 | PDOC.HOSPP ---
- Subjective Encounter Date: 02/19/20 (f/u fever) Encounter Time: 09:51 Subjective: Pt reports worse night sweats last night. She pointed out that the norco for pain has tylenol in it, so likely we are not capturing every time she has a fever. She also had reflux/chest pain last night - trop negative x 2 and no ecg change reported. She denies any new sx today. Normal bm yesterday. - Objective Vital Signs & Weight: Vital Signs (12 hours) Temp Pulse Resp BP Pulse Ox 02/19/20 04:52 98.7 F 80 16 137/75 95 02/19/20 04:00 98.3 F 02/19/20 00:00 100.3 F H 18 137/72 84 L Weight Weight 184 lb 5 oz I&O: 02/18/20 02/19/20 02/20/20 06:59 06:59 06:59 Intake Total 1275 2270 1200 Balance 1275 2270 1200 Result Diagrams: 02/19/20 05:59 02/19/20 05:59 Additional Labs: Accuchecks 02/19/20 02/18/20 02/18/20 06:29 16:12 11:23 POC Glucose 141 H 119 H 124 H Hospitalist ROS - Medication Medications: Active Medications Generic Name Dose Route Start Last Admin Trade Name Cassie PRN Reason Stop Dose Admin Hydrocodone Bitart/Acetaminophen 2 tab 02/16/20 11:58 02/19/20 09:09 Hydrocodone/Acetaminophen 5/325 Mg Tablet PO 2 tab Q4H PRN Administration Severe Pain (7-10) Cefepime HCl 1 gm/ Sodium 100 mls @ 200 mls/hr 02/16/20 13:00 02/19/20 01:55 Chloride IVPB 100 mls 0100,1300 LILLIE Administration Vancomycin HCl 750 mg/ Sodium 250 mls @ 250 mls/hr 02/18/20 15:00 02/19/20 04:00 Chloride IVPB 250 mls 0300,1500 LILLIE Administration Morphine Sulfate 2 mg 02/16/20 12:05 02/19/20 04:23 Morphine 2 Mg/Ml Vial SLOW IVP 2 mg Q4H PRN Administration Moderate to Severe Pain (6-10) Pantoprazole Sodium 40 mg 02/18/20 21:00 02/19/20 09:09 Pantoprazole 40 Mg Tab PO 40 mg BID LILLIE Administration Pramipexole Dihydrochloride 2 mg 02/18/20 21:00 02/18/20 20:37 Pramipexole Di-Hcl 1 Mg Tab PO 2 mg HS LILLIE Administration Sodium Chloride 10 ml 02/16/20 21:00 02/18/20 22:13 Flush - Normal Saline 10 Ml Syringe IVF Not Given Q12HR LILLIE Tizanidine HCl 4 mg 02/16/20 12:05 02/19/20 09:11 Tizanidine Hcl 4 Mg Tab PO 4 mg BIDPRN PRN Administration Muscle Spasm - Exam General Appearance: NAD Heart: RRR, no murmur Respiratory: CTAB, no wheezes, no rales, no ronchi Gastrointestinal: soft, non-tender, non-distended, normal bowel sounds Psychiatric: normal affect Hosp A/P (1) Anemia Code(s): D64.9 - ANEMIA, UNSPECIFIED Status: Acute Qualifiers: Anemia type: unspecified type Qualified Code(s): D64.9 - Anemia, unspecified (2) Fever Code(s): R50.9 - FEVER, UNSPECIFIED Status: Acute (3) Postoperative back pain Code(s): G89.18 - OTHER ACUTE POSTPROCEDURAL PAIN Status: Acute (4) Diabetes mellitus type 2 in obese Code(s): E11.69 - TYPE 2 DIABETES MELLITUS WITH OTHER SPECIFIED COMPLICATION; E66.9 - OBESITY, UNSPECIFIED Status: Chronic (5) GERD (gastroesophageal reflux disease) Code(s): K21.9 - GASTRO-ESOPHAGEAL REFLUX DISEASE WITHOUT ESOPHAGITIS Status: Chronic (6) Restless leg syndrome Status: Chronic (7) CHEKO (acute kidney injury) Code(s): N17.9 - ACUTE KIDNEY FAILURE, UNSPECIFIED Status: Resolved - Plan Fever - persistent without a source - given back surgery last week and no source identified - will consult ID - urine and blood cx remain negative from Jan - continue mobilizing - appreciate NS monitoring Anemia -s/p 1 unit prbc yesterday and 2 units total this hospitalization with expected response - appreciate GI consult - outpatient f/u DM - controlled RLS and muscle spasms - continue current meds dvt prophy - scd's and ambulatory gi prophy - on PPI daily code status full d/c planning - awaiting resolution of fevers and ID consult - anticipate soonest d/c is 24 hours.
--- NOTE | 2020-02-19 12:15 | CON ---
DATE OF CONSULTATION: REASON FOR CONSULTATION: Anemia requiring blood transfusion with no history of any GI bleeding. HISTORY OF PRESENT ILLNESS: Ms. Lolly Lopez is a very pleasant 59-year-old female, who underwent surgery this past Thursday by Dr. Kelley. The patient came back to the ER at [facility] with hypotension, feeling dizzy, and also a fever of 101.7 degrees Fahrenheit. The patient had no source for the fever. Also found to be anemic on admission and has been transfused. Blood count is dropping down after 2 units of packed RBCs. The patient had a stool testing done for occult blood, which came back negative. The patient tells me she has had hemorrhoids over the years and has had some bleeding off and on. Approximately, two weeks ago, she had pretty massive bleeding from hemorrhoids, and she had to sit at the bath tub for 30 minutes to soak with hot water. When she got up, she had whole tub full of blood. She had to wear pad and she kept bleeding for the next couple of days. She says she used 3 pads before the bleeding stopped. Apparently, she has had some bleeding off and on over the years. The patient has had a colonoscopy by Dr. Castanon, I believe, four years ago as per the patient. The patient also had seen me many years ago, and she tells me had a colonoscopy and found a malignant polyp, and she was seen by Dr. Kiran and underwent surgery. This must be about 10 to 12 years ago. The patient has had chronic hemorrhoidal symptoms with bleeding off and on. She does not strain or push hard during a bowel movement. History of IBS diarrhea and she has had multiple loose stools every day. The patient has really no GI symptoms. No abdominal pain. No nausea or vomiting and no history of any tarry stool and history of hematochezia a couple of weeks ago. She had no relevant history. MEDICAL ILLNESSES: 1. IBS diarrhea. 2. Chronic back pain since surgery. 3. Diabetes mellitus. 4. Reactive airway disease. 5. Migraine. 6. Arthritis. 7. Hypertension. 8. Hyperlipidemia. 9. History of colon cancer surgery in the past. PAST SURGICAL HISTORY: 1. Appendectomy. 2. Cholecystectomy. 3. Hysterectomy. 4. Total knee replacement, right side. 5. Colon resection many years ago for a malignant polyp. MEDICATION LIST: Reviewed, which includes 1. Simvastatin. 2. Losartan. 3. Hydrocodone. 4. Naproxen. 5. Imitrex. 6. Vitamin D3. 7. Vitamin C. 8. Albuterol inhaler. 9. Metformin. 10. Mirapex. 11. Omeprazole. SOCIAL HISTORY: She is . She is a former smoker. No alcohol intake. FAMILY HISTORY: Father had chronic kidney disease, diabetes, hypertension, heart disease, and lupus. Mother, arthritis and thyroid disease. REVIEW OF SYSTEMS: HEAD: No chronic headache. No dizziness except recently. EYES: No diplopia. No impaired vision. EARS: No hearing loss. NOSE: No nose bleed. No rhinorrhea. THROAT: No dysphagia. No sore throat. LUNGS: No chronic coughing. No hemoptysis. CARDIOVASCULAR SYSTEM: No chest pain. No palpitation. No dyspnea, orthopnea, or PND. GI: No abdominal pain. No nausea or vomiting. History of rectal bleeding two weeks ago. History of IBS diarrhea over the years. : No dysuria or hematuria. MUSCULOSKELETAL: Back pain from recent surgery and muscle spasm. NEURO: Nonrelevant. PSYCHIATRY: Nonrelevant. PHYSICAL EXAMINATION: GENERAL: Appears very comfortable except she has had some muscle spasm off and on in the back. She is in no distress. VITAL SIGNS: She has had a low-grade fever of 99.1 degrees Fahrenheit, pulse is 72, blood pressure 112/60. HEENT: Conjunctivae are clear. NECK: Supple. No adenitis or thyromegaly noted. CARDIOVASCULAR SYSTEM: Normal heart sounds. LUNGS: Clear to auscultation. ABDOMEN: Soft and nondistended. Abdomen is nontender. No organomegaly. No masses. Bowel sounds normal. EXTREMITIES: Reveal no edema. STEEL ENGRAVER: Grossly within normal limits. LABORATORY DATA: CBC on admission, which is on 02/16/2020, WBC 10,400, today is 6000; hemoglobin 6.8; hematocrit 22.8; platelet count is 182,000, polymorphs 77, lymphocytes 11, monocytes 8. Today, CBC; WBC 6000, hemoglobin 7.3, hematocrit 22.7, and platelet count 207,000, polymorphs 61, lymphocytes 20, monocytes 10. Serum chemistries are normal. Chem 7 normal. Liver function test; bilirubin 0.4, AST 35, ALT 28, alkaline phosphatase 134, albumin 3. Urine culture is not growing any organisms. The stool for occult blood is negative. Going over the [facility], she had anemia to start with. On 02/08/2020, hemoglobin was down to 8.3, hematocrit 27.7. CLINICAL IMPRESSION: 1. Anemia, most likely from previous blood loss from hemorrhoids. She apparently tells me she has lost a lot of blood two weeks ago and she has to sit in the bathtub for 30 minutes and she had bleeding for the next couple of days. Per the description, it appears she has lost lot of blood. She had anemia even before surgery. On 02/07, her hemoglobin was 8.3, which was dropping down to 6.8 recently. I believe her anemia is acute on chronic and she had no active gastrointestinal bleeding. Stool is negative for occult blood. 2. Recent back surgery. 3. Fever of unknown etiology, responding to antibiotics. 4. Diabetes mellitus. 5. Hypertension. 6. Migraine. 7. Reactive airway disease. RECOMMENDATION: Transfusion support. Continue antibiotics. I believe she had no active bleeding and stool is negative for occult blood. I will just treat conservatively and transfuse p.r.n. Dr. Steve Castanon has seen the patient before, and I will ask Dr. Castanon to assume care from Thursday. Job ID: [id number] MTDD
--- NOTE | 2020-02-19 13:35 | PRG ---
DATE OF SERVICE: 02/19/2020 SUBJECTIVE: This is a very pleasant 59-year-old female with recent spinal surgery by Dr. Kelley. She was hospitalized with hypotension, fever, and also anemia. The patient had no history of overt GI bleeding recently. The patient had some hemorrhoidal bleeding couple of weeks ago. The patient had hemorrhoidal bleeding off and on in the past. The patient's blood count is coming up after transfusion. However, she had no overt GI bleeding. She had a stool testing done for occult blood, which came back negative. She is having regular stools. No abdominal pain. No hematochezia. No black stools. Today, CBC shows WBC of 5700, hemoglobin up to 9.0, hematocrit 27.5. She offers no complaint of back pain and some back spasms. PHYSICAL EXAMINATION: VITAL SIGNS: Today, she is afebrile, but earlier this morning, she had a fever of 100.3 degrees Fahrenheit, pulse is 76, blood pressure is 135/72. CARDIOVASCULAR SYSTEM: Within normal limits. LUNGS: Within normal limits. ABDOMEN: Soft. No organomegaly. No tenderness. No masses. IMPRESSION: 1. Anemia, appears to be most likely acute on chronic. At the present time, she had no active bleeding. No black tarry stool or any bleeding. She has had hemorrhoidal bleeding off and on. 2. Recent back surgery, having some fever, back spasm, and back pain. She already is on antibiotics. Her fever is_ trending down. RECOMMENDATIONS: Continue symptomatic treatment. From GI standpoint, no endoscopic studies planned for the time being. Dr. Steve Castanon is her primary finishing machine tender, who will see the patient tomorrow. Job ID: [id number] [facility]
--- NOTE | 2020-02-19 16:05 | CON ---
DATE OF CONSULTATION: 02/19/2020 REASON FOR CONSULTATION: Fever. HISTORY OF PRESENT ILLNESS: A 59-year-old who was admitted previously in September last year for knee procedure in the right side with an implant and then on February 14 had lumbosacral spine interbody device fusion at L4-5, laminectomy at L4-S1. This was carried out on February 12 again. Postop period was uneventful. She subsequently has developed progressively worsening lower back pain and some chills with temp over 102. She has been admitted. On admission, initial findings included BP 130/60, pulse 101, temperature 98.9, O2 saturation 100 and initial exam did not show any obvious inflammatory changes at the lumbosacral spine incision with no drainage. She did have some moderate tenderness on palpation. She had a thoracic spine MRI which was unremarkable. The lumbar spine MRI which showed transpedicular screws at L4-5, laminectomy defect at L4-5, severe central canal stenosis at L4- 5, T2 hyperintense fluid collection. She had an abdomen and pelvis CT on the same day and this one showed gas and ill-defined edema in subcutaneous and deep tissue surrounding surgical site, lumbar spine. No obvious fluid collection or definite abscess. Streak artifact from hardware limits detail. There was gas in soft tissues felt to be likely related to the recent surgery, although gas-forming infection not ruled out. Currently, Ms. Lopez is in no acute distress. She is sitting in bed. Denies any headaches. No visual symptoms, sore throat, odynophagia, dysphagia. No cough or sputum production. No abdominal pain. Voiding without difficulty. No diarrhea. She has moderate pain in the lower back. No joint symptoms elsewhere. PAST MEDICAL HISTORY: Includes irritable bowel syndrome, type 2 diabetes, chronic back pain, osteoarthrosis, right knee replacement, cholecystectomy, hysterectomy, recent laminectomy and fusion of lumbosacral spine, colon cancer with colon resection. FAMILY HISTORY: Diabetes type 2, hypertension, systemic lupus erythematosus. SOCIAL HISTORY: Former smoker. . CURRENT MEDICATIONS: 1. Cefepime 1 g q.12. 2. Hydrocodone. 3. Insulin. 4. Pantoprazole. 5. Vancomycin. 6. Tizanidine. PHYSICAL EXAMINATION: VITAL SIGNS: T-max 102.3 on admission. Still having low-grade temp spikes up to 100.3 intermittently. Other vital signs are normal. SKIN: The wound of the lumbosacral spine still with sohan, but very faint pink erythema at the very margin, but no drainage. Moderate tenderness in the right lower edge of the wound. The patient does not have Stearns catheter, peripheral IV access. No lymphadenopathy. HEENT: Ocular movements conjugate. Oral cavity normal. NECK: Supple. LUNGS: Symmetric. Clear breath sounds. HEART: S1 and S2, regular rate. No murmurs. ABDOMEN: Soft. Not distended or tender. No ascites. No bladder distention. EXTREMITIES: No joint inflammatory activity outside the involved area. Pulses 1+ in dorsalis pedis. Moves all extremities equally. NEUROLOGIC: Cognitive function appears to be intact. LABORATORY STUDIES: White cell count is 10.4, now 5.7; hemoglobin 9.0; MCV 82; platelets 226 with normal differential. She had 77% neutrophils on admission, retic count 1.8. AST 35, ALT 28, alkaline phosphatase 134, albumin 3.0, globulin 3.3, creatinine 0.78. Urinalysis; 0 to 3 wbc's. SARS-CoV PCR not detected. IMAGING STUDIES: Discussed above. There is a chest x-ray from admission, which showed normal findings. ASSESSMENT: Chronic low back pain with stenosis, status post laminectomy with fusion L4-5 with interbody device and instrumentation. This is 6 days after the surgery and the patient has had worsening pain with fever and the findings discussed on imaging study. DISCUSSION: Early on after surgical procedure such as this one, frequently patients will have those findings in the imaging studies and it is difficult to distinguish from just normal postop findings and superimposed infection. Evidently, sampling of the area with submission for cultures would be the quickest way to rule out an infectious process, but I do not think that is in the cards due to the risks associated with introduction of pathogens, but that might be considered and I guess it could be done by Radiology. The alternate approach would be to just continue antimicrobial therapy and see if she defervesces and then followup. The blood cultures that were submitted are thus far negative 48 hours and we will see what that turns out. Other possibilities are not apparent at this time. There is no evidence of respiratory or intra-abdominal inflammatory process. No other bone or joint inflammatory process either. Thromboembolism is unlikely. Job ID: [id number] [facility]
[2020-02-19] MEDS: Pramipexole Di-HCl 1 MG TAB PO SCH (20:41)
[2020-02-20] MEDS: Cefepime 1 GM in Sodium Chloride 0.9% 100 ML IVPB SCH ×2 (02:05→13:18)
[2020-02-20] MEDS: tiZANidine HCl 4 MG TAB PO PRN (02:15)
[2020-02-20 02:20] LABS: Vancomycin, Trough 12.8 ug/mL
[2020-02-20] MEDS: Vancomycin 1 GM in Premix Bag 1 BAG IVPB SCH ×2 (04:13→15:51)
[2020-02-20] MEDS: Morphine 2 MG/ML VIAL SLOW IVP PRN (04:15)
[2020-02-20 06:19] LABS: #Basophils 0.1 thou/uL (0.0-0.2); #Eosinphils 0.6 thou/uL (0.0-0.7); #Lymphocytes 1.6 thou/uL (1.20-3.40); #Monocytes 0.5 thou/uL (0.11-0.59); #Neutrophils 3.4 thou/uL (1.40-6.50); %Eosinophils 10.2 % (0.0-10.0); %Lymphocytes 26.1 % (21.0-51.0); %Monocytes 7.9 % (0.0-10.0); %Neutrophils 54.8 % (42.0-75.0); Hemoglobin 9.6 g/dL (12.0-16.0); Mean Corpuscular HGB CONC 32.4 g/dL (32.0-36.0); Mean Corpuscular Hemoglobin 26.8 pg (27.0-31.0); Mean Corpuscular Volume 82.7 fL (78.0-98.0); Mean Platelet Volume 8.7 fL (7.4-10.4); Platelet Count 264 thou/uL (130-400); RBC Distribution Width 15.5 % (11.5-14.5); Red Blood Cell (RBC) Count 3.57 mill/uL (4.20-5.40); White Blood Cell (WBC) Count 6.3 thou/uL (4.8-10.8)
[2020-02-20] MEDS: Vancomycin HCl 750 MG in Sodium Chloride 0.9% 250 ML 250 ML IVPB SCH (06:38)
[2020-02-20 06:42] LABS: Anion Gap 15 mmol/L (10-20); BUN (Urea Nitrogen) 14 mg/dL (9.8-20.1); Calc. Creatinine Clearance 99 mL/min (70-130); Calcium 9.6 mg/dL (7.8-10.44); Carbon Dioxide 25 mmol/L (23-31); Chloride 102 mmol/L (98-107); Estimated GFR-MDRD 74; Glucose 100 mg/dL (80-115); Potassium 4.4 mmol/L (3.5-5.1); Sodium 138 mmol/L (136-145)
--- NOTE | 2020-02-20 07:07 | PRG ---
DATE OF SERVICE: 02/20/2020 Ms. Lopez has been ambulatory this weekend. She continues to have on and off low-grade fevers and her fever curve is generally coming down. The highest temperature over the last 24 hours is 100.3 degrees Fahrenheit. Her fever started less than three days after her operation. Her wound was treated with vancomycin powder. I think, it is unlikely she has a wound infection, if not impossible. I will defer to the primary team and Infectious Disease if they want Radiology to do a CT-guided aspirate of the fluid collection. We will continue to follow her while she is in the hospital. Job ID: [id number]
[2020-02-20] MEDS: HYDROcodone/Acetaminophen 5/325 mg Tablet PO PRN ×3 (08:42→20:42)
--- NOTE | 2020-02-20 11:33 | PDOC.HOSPP ---
- Subjective Encounter Date: 02/20/20 Encounter Time: 11:27 Subjective: pain decreased. no fever, sweats, chills overnite - Objective Vital Signs & Weight: Vital Signs (12 hours) Temp Pulse Resp BP BP Pulse Ox 02/20/20 08:31 98.6 F 78 18 161/80 H 95 02/20/20 08:00 98.6 F 78 18 161/80 H 95 02/20/20 04:00 99.0 F 70 18 134/72 95 Weight Weight 184 lb 5 oz I&O: 02/19/20 02/20/20 02/21/20 06:59 06:59 06:59 Intake Total 2270 3270 Balance 2270 3270 Result Diagrams: 02/20/20 05:38 02/20/20 05:38 Additional Labs: Accuchecks 02/20/20 02/19/20 02/19/20 04:06 20:15 16:28 POC Glucose 112 H 128 H 116 H Hospitalist ROS - Medication Medications: Active Medications Generic Name Dose Route Start Last Admin Trade Name Freq PRN Reason Stop Dose Admin Hydrocodone Bitart/Acetaminophen 1 tab 02/16/20 11:58 02/20/20 02:04 Hydrocodone/Acetaminophen 5/325 Mg Tablet PO 1 tab Q4H PRN Administration Moderate Pain (4-6) Hydrocodone Bitart/Acetaminophen 2 tab 02/16/20 11:58 02/20/20 08:42 Hydrocodone/Acetaminophen 5/325 Mg Tablet PO 2 tab Q4H PRN Administration Severe Pain (7-10) Cefepime HCl 1 gm/ Sodium 100 mls @ 200 mls/hr 02/16/20 13:00 02/20/20 02:05 Chloride IVPB 100 mls 0100,1300 LILLIE Administration Vancomycin HCl 1 gm/ Device 200 mls @ 200 mls/hr 02/20/20 04:00 02/20/20 04:13 IVPB 200 mls 0400,1600 LILLIE Administration Morphine Sulfate 2 mg 02/16/20 12:05 02/20/20 04:15 Morphine 2 Mg/Ml Vial SLOW IVP 2 mg Q4H PRN Administration Moderate to Severe Pain (6-10) Pantoprazole Sodium 40 mg 02/18/20 21:00 02/20/20 08:40 Pantoprazole 40 Mg Tab PO 40 mg BID LILLIE Administration Pramipexole Dihydrochloride 2 mg 02/18/20 21:00 02/19/20 20:41 Pramipexole Di-Hcl 1 Mg Tab PO 2 mg HS LILLIE Administration Sodium Chloride 10 ml 02/16/20 21:00 02/20/20 08:41 Flush - Normal Saline 10 Ml Syringe IVF 10 ml Q12HR LILLIE Administration Tizanidine HCl 4 mg 02/16/20 12:05 02/20/20 02:15 Tizanidine Hcl 4 Mg Tab PO 4 mg BIDPRN PRN Administration Muscle Spasm - Exam General Appearance: awake alert Neck: no JVD Heart: RRR, no murmur Respiratory: CTAB Gastrointestinal: soft, non-distended, normal bowel sounds Extremities: no edema Hosp A/P (1) DM (diabetes mellitus) Code(s): E11.9 - TYPE 2 DIABETES MELLITUS WITHOUT COMPLICATIONS Status: Acute Qualifiers: Diabetes mellitus type: type 2 Diabetes mellitus buttermaker helper insulin use: without buttermaker helper use Diabetes mellitus complication status: without complication Qualified Code(s): E11.9 - Type 2 diabetes mellitus without complications (2) Anemia Code(s): D64.9 - ANEMIA, UNSPECIFIED Status: Acute Qualifiers: Anemia type: unspecified type Qualified Code(s): D64.9 - Anemia, unspecified (3) Fever Code(s): R50.9 - FEVER, UNSPECIFIED Status: Acute Qualifiers: Fever type: unspecified Qualified Code(s): R50.9 - Fever, unspecified (4) Postoperative back pain Code(s): G89.18 - OTHER ACUTE POSTPROCEDURAL PAIN Status: Acute - Plan post transfusion, Hg stable. GI will see later todfay fever, source unclear- cont iv antibx, monitor teperature accu/ss metformin
[2020-02-20] MEDS: Pramipexole Di-HCl 1 MG TAB PO SCH (20:43)
[2020-02-21] MEDS: HYDROcodone/Acetaminophen 5/325 mg Tablet PO PRN ×5 (01:46→21:48)
[2020-02-21] MEDS: Cefepime 1 GM in Sodium Chloride 0.9% 100 ML IVPB SCH ×2 (02:25→15:42)
[2020-02-21] MEDS: Vancomycin 1 GM in Premix Bag 1 BAG IVPB SCH ×2 (05:15→18:22)
--- NOTE | 2020-02-21 06:49 | PRG ---
DATE OF SERVICE: 02/21/2020 I saw Ms. Lopez this morning. Over the last 24 hours, her temperature did not cross the 100 degree Fahrenheit threshold. She is 99.9 on a couple of occasions. She continues on antibiotics. She has no complaints. Blood pressures have been in the 140s to 160s. Neurological function in lower extremities is normal. Ms. Lopez is going to continue to mobilize. She used her incentive spirometer. Further workup is deferred to the inpatient medical team. Job ID: [id number]
--- NOTE | 2020-02-21 10:50 | PDOC.HOSPP ---
- Subjective Encounter Date: 02/21/20 Encounter Time: 10:50 Subjective: max temp 99.9 documented. had sweat last nite - Objective Vital Signs & Weight: Vital Signs (12 hours) Temp Pulse Resp BP Pulse Ox 02/21/20 08:14 98.1 F 74 18 153/82 H 98 02/21/20 00:00 99.9 F H 79 20 143/80 H 96 Weight Weight 184 lb 5 oz I&O: 02/20/20 02/21/20 02/22/20 06:59 06:59 06:59 Intake Total 3270 Balance 3270 Result Diagrams: 02/20/20 05:38 02/20/20 05:38 Additional Labs: Accuchecks 02/20/20 02/20/20 02/20/20 20:16 17:00 15:55 POC Glucose 136 H 117 H 106 H 02/20/20 11:59 POC Glucose 101 H Hospitalist ROS - Medication Medications: Active Medications Generic Name Dose Route Start Last Admin Trade Name Freq PRN Reason Stop Dose Admin Hydrocodone Bitart/Acetaminophen 1 tab 02/16/20 11:58 02/20/20 02:04 Hydrocodone/Acetaminophen 5/325 Mg Tablet PO 1 tab Q4H PRN Administration Moderate Pain (4-6) Hydrocodone Bitart/Acetaminophen 2 tab 02/16/20 11:58 02/21/20 08:12 Hydrocodone/Acetaminophen 5/325 Mg Tablet PO 2 tab Q4H PRN Administration Severe Pain (7-10) Cefepime HCl 1 gm/ Sodium 100 mls @ 200 mls/hr 02/16/20 13:00 02/21/20 02:25 Chloride IVPB 100 mls 0100,1300 LILLIE Administration Vancomycin HCl 1 gm/ Device 200 mls @ 200 mls/hr 02/20/20 04:00 02/21/20 05:15 IVPB 200 mls 0400,1600 LILLIE Administration Morphine Sulfate 2 mg 02/16/20 12:05 02/20/20 04:15 Morphine 2 Mg/Ml Vial SLOW IVP 2 mg Q4H PRN Administration Moderate to Severe Pain (6-10) Pantoprazole Sodium 40 mg 02/18/20 21:00 02/21/20 08:11 Pantoprazole 40 Mg Tab PO 40 mg BID LILLIE Administration Pramipexole Dihydrochloride 2 mg 02/18/20 21:00 02/20/20 20:43 Pramipexole Di-Hcl 1 Mg Tab PO 2 mg HS LILLIE Administration Sodium Chloride 10 ml 02/16/20 21:00 02/21/20 08:13 Flush - Normal Saline 10 Ml Syringe IVF 10 ml Q12HR LILLIE Administration Tizanidine HCl 4 mg 02/16/20 12:05 02/20/20 02:15 Tizanidine Hcl 4 Mg Tab PO 4 mg BIDPRN PRN Administration Muscle Spasm - Exam General Appearance: awake alert Neck: no JVD Heart: RRR, no murmur Respiratory: CTAB Gastrointestinal: soft, normal bowel sounds Extremities: no edema Skin - other findings: lumbar lesion clean, no erythema, etc Hosp A/P (1) DM (diabetes mellitus) Code(s): E11.9 - TYPE 2 DIABETES MELLITUS WITHOUT COMPLICATIONS Status: Acute Qualifiers: Diabetes mellitus type: type 2 Diabetes mellitus penitentiary insulin use: without penitentiary use Diabetes mellitus complication status: without complication Qualified Code(s): E11.9 - Type 2 diabetes mellitus without complications (2) Anemia Code(s): D64.9 - ANEMIA, UNSPECIFIED Status: Acute Qualifiers: Anemia type: unspecified type Qualified Code(s): D64.9 - Anemia, unspecified (3) Fever Code(s): R50.9 - FEVER, UNSPECIFIED Status: Acute Qualifiers: Fever type: unspecified Qualified Code(s): R50.9 - Fever, unspecified (4) Postoperative back pain Code(s): G89.18 - OTHER ACUTE POSTPROCEDURAL PAIN Status: Acute - Plan no bleeding, Hg stable temperature moderatrin, cont iv antibx discuss with ID in AM
[2020-02-21 15:20] LABS: Vancomycin, Trough 16.5 ug/mL
[2020-02-21] MEDS: Pramipexole Di-HCl 1 MG TAB PO SCH (21:49)
[2020-02-22] MEDS: Cefepime 1 GM in Sodium Chloride 0.9% 100 ML IVPB SCH ×2 (01:00→12:42)
[2020-02-22] MEDS: HYDROcodone/Acetaminophen 5/325 mg Tablet PO PRN ×2 (05:34→09:59)
[2020-02-22] MEDS: Vancomycin 1 GM in Premix Bag 1 BAG IVPB SCH (06:17)
[2020-02-22 07:14] VITALS: BP 146/83; TEMP 98.4
--- NOTE | 2020-02-22 07:23 | PRG ---
DATE OF SERVICE: 02/22/2020 I saw Ms. Lopez in her hospital room this morning. She is sitting on the edge of the bed with her civilian clothes on, waiting for discharge. She would like to get home as soon as possible. She is feeling much better than when she was readmitted to the hospital. She has been walking. In fact, she took at least 4 to 6 trips around the entire floor from end-to-end and around the [place] yesterday. She does not notice any pain or weakness in the legs. The highest temperature recorded last night was 99.5 degrees Fahrenheit, which is continued to defervesce of her fever curve. I do not find any new deficits. From my point of view, Ms. Lopez can be discharged. Followup will be arranged by our office. We went over wound care and restrictions. Job ID: [id number]
--- NOTE | 2020-02-22 09:19 | EKG ---
Test Reason : Blood Pressure : / mmHG Vent. Rate : 088 BPM Atrial Rate : 088 BPM P-R Int : 118 ms QRS Dur : 082 ms QT Int : 324 ms P-R-T Axes : 034 036 032 degrees QTc Int : 392 ms Normal sinus rhythm Normal ECG When compared with ECG of 08-FEB-2020 08:31, No significant change was found Confirmed by AUSTIN ALEGRIA MD ([id number]) on 02/22/2020 9:18:54 AM Referred By: SHAHEEN Confirmed By:AUSTIN ALEGRIA MD
--- NOTE | 2020-02-22 12:42 | PRG ---
DATE OF SERVICE: 02/22/2020 SUBJECTIVE: Having spasms, which are quite intense from [id number]. Some sweats at night. No shortness of breath or abdominal pain. Voiding without difficulty. No radiculopathy. OBJECTIVE: VITAL SIGNS: T-max 99.9 two days ago, now she has been defervescing; room air O2 sats 97%; blood pressure 140/83. GENERAL: Does not appear in distress. HEENT: Ocular movements conjugate. LUNGS: Clear. HEART: S1 and S2, regular rate. ABDOMEN: Soft. BACK: Has sohan in place, not particularly erythematous or swollen. No drainage noted. [id number] tenderness. NEURO: Nonfocal. LABORATORY DATA: White cell count 6.3, hemoglobin 9.6, platelets 264, normal differential. Creatinine 0.79. All cultures are negative including blood, urine. ASSESSMENT AND DISCUSSION: Chronic low back pain, stenosis, laminectomy with fusion, L4-L5 interbody device instrumentation 6 days after surgery with worsening pain, fever, and the findings in the imaging study. The patient seems to be improving. There is still a question of the underlying cause of the fever and I still think that the surgical site is a major concern. I explained to the patient that there might be recrudescence of inflammatory process once the IV antimicrobials are discontinued, but we do not have a proof that the site is involved at this point in time, so I would probably switch her to oral Keflex and doxy for discharge planning for at least 3 weeks in followup labs on a weekly basis and then follow up her in the clinic, and that seems to be agreeable to Dr. Kelley as well. Job ID: [id number]
--- NOTE | 2020-02-22 14:56 | DIS ---
DATE OF ADMISSION: 02/16/2020 DATE OF DISCHARGE: 02/22/2020 PRIMARY CARE PROVIDER: Dr. Ontiveros. FINAL DIAGNOSES: 1. Fever, source unknown. 2. Diabetes mellitus type 2. 3. Postoperative back pain. 4. Anemia. 5. Acute kidney injury, resolved. DISCHARGE MEDICATIONS: Cephalexin 500 mg p.o. q.i.d., losartan 100 mg in the morning, Mirapex 2 mg at bedtime, vitamin D3, hydrocodone 10/325, 2 tabs p.o. q.6 hours p.r.n. pain, Naprosyn 500 mg p.o. b.i.d., Zocor 10 mg at bedtime, metformin 500 mg a day, Imitrex 100 mg p.o. q.2 hours p.r.n., omeprazole 40 mg a day, and albuterol HFA two puffs q.4 hours as directed. ALLERGIES: KLONOPIN, GABAPENTIN, PENICILLIN, PREGABALIN, SULFAMETHOXAZOLE, AND TRIMETHOPRIM. CODE STATUS: Full. PENDING AT TIME OF DISCHARGE: Nothing. DIET: Diabetic. HOSPITAL COURSE: The patient was admitted to the [facility] Hospitalist Service to the [facility] hospitalist Service through [facility]. The patient presented with post-lumbar laminectomy two days prior to admission. She developed more pain, developed fever and chills and a temperature of 102, presented to emergency department, workup there favored postop changes with no evidence of fluid collection or epidural abscess. Laboratory; initial CBC, white count 10.8, hemoglobin 6.8, platelet count 182,000. Initial comprehensive metabolic profile, normal basic metabolic profile; blood sugars in the 100 range; COVID negative; UA unremarkable. The patient was admitted to the hospital. Cultures were obtained. Neurosurgery was consulted as was Infectious Disease, Dr. Jimenes and Dr. Kelley. The cultures subsequently grew nothing. Dr. Jimenes considered that investigation of wound was probably the most productive for determining the issue. She had no pulmonary findings. No urinary findings. The patient was treated with pain medicines, IV antibiotics. At the time of discharge, she is on cefepime and vancomycin. She is being transitioned to cephalexin 500 mg p.o. four times a day for 7 days. She will be continued on her home medicines, analgesics she was on before hospitalization. Her most recent laboratory reports; blood sugars in the normal range and normal comprehensive metabolic profile. CBC; white count 6.3 and hemoglobin 9.6. It is pertinent that she received a blood transfusion during her hospital stay. Post transfusion, her hemoglobin has been stable to increasing. Followup is to be with her PCP in 7 days and to follow up with Dr. Kelley. Her wound has been checked on a daily basis and is healing nicely and clean with no evidence of induration, erythema, drainage, etc. Job ID: [id number]
--- NOTE | 2020-02-25 03:33 | PQF ---
Dear : Tyesha Thrasher Date: 02/25/2020 Please exercise your independent, professional judgment in responding to the clarification form. Clinical indicators are provided on the bottom of this form for your review Can you please further clarify the diagnosis of the patient? Please check appropriate box(es): [ ] Sepsis is a complication of recent procedure [ ] Sepsis is not a complication of recent procedure [ ] Other diagnosis please specify [ x] Unable to determine To be completed by CDI/Coding staff for physician review: Present Clinical Indicators - Signs / Symptoms / Labs Results and Location in Medical Record [ x ] fever H and P pg.1 [ x ] She underwent a lumbar laminectomy a few days ago H and P pg.1 [ x ] Shoe was found to be moderately hypotensive H and P pg.1 [ x ] Slight elevation of WBC qualified for sepsis criteria H and P pg.2 [ x ] Sepsis unknown origin H and P pg.4 [ x ] 2 days post op from laminectomy Consult pg.2 02/16 [ x ] initial exam did not shows any obvious inflammatory defect at L4-5 Consult pg.1 02/18 [ x ] I still think that the surgical site a major concern PN 02/21 pg.1 [ x ] " The investigation of wound was probably the most productive for determining the issues" DS pg.2 Present Risk Factors Results and Location in Medical Record [ x ] s/p lumbar laminectomy H and P pg.5 [ x ] Smoker H and P pg.2 [ x ] 59 years old H and P pg.1 [ x ] Post operative back pain DS pg.1 Present Treatments Results and Location in Medical Record [ x ] IV Fluids MAR [ x ] Infectious Consult Dr. Jimenes [ x ] IV Antibiotics MAR CDS/[employer] Driver Signature: Mina Benjamin Phone #: ext [phone] Date: 02/25/2020 This is a permanent part of the Medical Record [facility]
== END 2020-02-22 13:49 | disposition home or self-care (01) | DRG 872 ==
LOC: ERS 04:05 → T4-B 11:01
PROVIDERS: ADMIT Internal Medicine; ATTEND Internal Medicine
PROC: 30233N1 Transfusion of Nonautologous Red Blood Cells into Peripheral Vein, Percutaneous Approach (ICD-10-PCS; principal; 2020-02-16)
DX: A41.9 Sepsis, unspecified organism (principal); N17.9 Acute kidney failure, unspecified; G89.18 Other acute postprocedural pain; Z20.828 Contact with and (suspected) exposure to other viral communicable diseases; Z96.651 Presence of right artificial knee joint; E11.69 Type 2 diabetes mellitus with other specified complication; K21.9 Gastro-esophageal reflux disease without esophagitis; E66.9 Obesity, unspecified; E11.22 Type 2 diabetes mellitus with diabetic chronic kidney disease; N18.30 Chronic kidney disease, stage 3 unspecified; I12.9 Hypertensive chronic kidney disease with stage 1 through stage 4 chronic kidney disease, or unspecified chronic kidney disease; G25.81 Restless legs syndrome; K58.0 Irritable bowel syndrome with diarrhea; G43.909 Migraine, unspecified, not intractable, without status migrainosus; J45.909 Unspecified asthma, uncomplicated; D63.1 Anemia in chronic kidney disease; E11.42 Type 2 diabetes mellitus with diabetic polyneuropathy; Z90.49 Acquired absence of other specified parts of digestive tract; Z90.710 Acquired absence of both cervix and uterus; Z88.0 Allergy status to penicillin; Z88.2 Allergy status to sulfonamides; Z88.8 Allergy status to other drugs, medicaments and biological substances; Z79.84 Long term (current) use of oral hypoglycemic drugs; Z79.899 Other long term (current) drug therapy; Z68.34 Body mass index [BMI] 34.0-34.9, adult
CPT/HCPCS: 36415; 36416; 36430; 72146; 72158; 80048; 80053; 80202; 81001; 82274; 82607; 82746; 83540; 83550; 83735; 83880; 84484; 85025; 85046; 86140; 86850; 86900; 86901; 87086; 87635; 93005; 93010; 96374; 96375; 96376; A9579; J0692; J2270; J2405; J3370; J3490; J7050; P9016; U0003

== ENCOUNTER 2022-04-17 13:42 | Emergency (ER) | payer OTHER ==
[2022-04-17 14:44] LABS: #Basophils 0.1 thou/uL (0.0-0.2); #Eosinphils 0.2 thou/uL (0.0-0.7); #Lymphocytes 2.1 thou/uL (1.20-3.40); #Monocytes 0.6 thou/uL (0.11-0.59); #Neutrophils 5.8 thou/uL (1.40-6.50); %Basophils 0.7 % (0.0-1.0); %Eosinophils 2.1 % (0.0-10.0); %Lymphocytes 23.7 % (21.0-51.0); %Monocytes 7.3 % (0.0-10.0); %Neutrophils 66.3 % (42.0-75.0); Hemoglobin 8.8 g/dL (12.0-16.0); Mean Corpuscular HGB CONC 32.6 g/dL (32.0-36.0); Mean Corpuscular Volume 70.6 fl (78.0-98.0); Mean Platelet Volume 9.1 fL (7.4-10.4); Platelet Count 324 10x3/uL (130-400); RBC Distribution Width 16.6 % (11.5-14.5); Red Blood Cell (RBC) Count 3.81 mill/uL (4.20-5.40); White Blood Cell (WBC) Count 8.7 10x3/uL (4.8-10.8)
[2022-04-17 14:59] LABS: Anisocytosis SLIGHT = 6-15 cells (100X) (0-5/hpf); Hypochromia SLIGHT = 6-15 cells (100X) (0-5/hpf); MDiff Complete? YES; Microcytosis SLIGHT = 6-15 cells (100X) (0-5/hpf); Ovalocytes SLIGHT = 2-5 cells (100X) (0-1/hpf); Platelet Morphology Comment Appears Adequate; Polychromasia SLIGHT = 2-3 cells (100X) (0-2/hpf)
[2022-04-17 15:07] LABS: ALT (SGPT) Less than 7 U/L (8-55); AST (SGOT) 11 U/L (5-34); Albumin 4.2 g/dL (3.4-4.8); Alkaline Phosphatase 96 U/L (40-110); Anion Gap 14 mmol/L (10-20); BUN (Urea Nitrogen) 39 mg/dL (9.8-20.1); Bilirubin, Total 0.4 mg/dL (0.2-1.2); Calc. Creatinine Clearance 0 mL/min (70-130); Calcium 10.1 mg/dL (7.8-10.44); Carbon Dioxide 28 mmol/L (23-31); Chloride 100 mmol/L (98-107); Estimated GFR 33; Glucose 97 mg/dL (80-115); Lipase 35 U/L (8-78); Protein, Total 8.2 g/dL (5.8-8.1); Sodium 138 mmol/L (136-145)
[2022-04-17 15:50] LABS: Bilirubin Negative (Negative); Blood, Urine Negative (Negative); Clarity Clear (Clear); Glucose, Urine (Dipstick) Normal (Negative); Ketone, Urine Negative (Negative); Leukocyte Negative Leu/uL (Negative); Nitrite Negative (Negative); Protein, Urine (Dipstick) Negative (Neg-Trace); Specific Gravity, Urine 1.016 (1.002-1.036); Urobilinogen Normal mg/dL (Less than 2)
== END 2022-04-17 17:31 | disposition home or self-care (01) ==
LOC: ERS 13:42
DX: D50.0 Iron deficiency anemia secondary to blood loss (chronic) (principal); K92.1 Melena; E11.42 Type 2 diabetes mellitus with diabetic polyneuropathy; I11.0 Hypertensive heart disease with heart failure; I50.9 Heart failure, unspecified; E78.5 Hyperlipidemia, unspecified; E78.00 Pure hypercholesterolemia, unspecified; Z79.84 Long term (current) use of oral hypoglycemic drugs; Z79.899 Other long term (current) drug therapy
CPT/HCPCS: 36415; 71045; 80053; 81003; 83690; 83880; 84484; 85025; 86850; 86900; 86901; 93005

== ENCOUNTER 2022-05-18 19:28 | Inpatient (IN) | payer OTHER ==
[2022-05-18 20:13] VITALS: BMI 36.7
[2022-05-18] MEDS ORDERED: Acetaminophen 325 MG TAB PO PRN ×2 (21:00→22:36)
[2022-05-18] MEDS ORDERED: Ondansetron PF 4 MG/2 ML Vial IVP PRN ×2 (21:00→22:36)
[2022-05-18] MEDS ORDERED: Ondansetron ODT 4 MG TAB SL PRN (21:00)
[2022-05-18] MEDS ORDERED: HumaLOG 300 UNITS/3 ML VIAL SC PRN ×2 (22:24)
[2022-05-18] MEDS ORDERED: Dextrose 5% in Water 1,000 ML IV PRN (22:24)
[2022-05-18] MEDS ORDERED: Dextrose 50% Abboject 50 ML SYRINGE SLOW IVP PRN (22:24)
[2022-05-18] MEDS ORDERED: Ondansetron ODT 4 MG TAB PO PRN (22:36)
[2022-05-18] MEDS ORDERED: Acetaminophen 650 MG Suppository PR PRN (22:36)
[2022-05-18] MEDS ORDERED: Albuterol 200 PUFF (6.7GM INHALER) INH PRN (22:38)
[2022-05-18 22:41] LABS: Troponin I Less than 0.010 ng/mL (< 0.028)
[2022-05-18] MEDS ORDERED: Pantoprazole 40 MG VIAL IVP SCH (22:45)
[2022-05-18] MEDS ORDERED: Escitalopram Oxalate 10 mg Tablet PO SCH (23:00)
[2022-05-18] MEDS ORDERED: Pramipexole Di-HCl 1 MG TAB PO SCH ×2 (23:15→23:30)
[2022-05-18 23:28] LABS: Hemoglobin 7.1 g/dL (12.0-16.0)
[2022-05-18] MEDS: HYDROcodone/Acetaminophen 5/325 mg Tablet PO PRN (23:33)
[2022-05-18] MEDS: Sodium Chloride 0.9% 1,000 ML IV SCH (23:34)
[2022-05-19] MEDS ORDERED: Labetalol HCl 100 MG/20 ML VIAL SLOW IVP PRN (01:31)
[2022-05-19 05:11] LABS: #Basophils 0.1 thou/uL (0.0-0.2); #Eosinphils 0.2 thou/uL (0.0-0.7); #Lymphocytes 2.3 thou/uL (1.20-3.40); #Monocytes 0.6 thou/uL (0.11-0.59); #Neutrophils 4.5 thou/uL (1.40-6.50); %Basophils 0.8 % (0.0-1.0); %Eosinophils 2.2 % (0.0-10.0); %Lymphocytes 29.9 % (21.0-51.0); %Monocytes 8.3 % (0.0-10.0); %Neutrophils 58.9 % (42.0-75.0); Hemoglobin 6.5 g/dL (12.0-16.0); Mean Corpuscular HGB CONC 31.1 g/dL (32.0-36.0); Mean Corpuscular Hemoglobin 21.6 pg (27.0-31.0); Mean Corpuscular Volume 69.5 fl (78.0-98.0); Platelet Count 292 10x3/uL (130-400); RBC Distribution Width 16.6 % (11.5-14.5); Red Blood Cell (RBC) Count 3.01 mill/uL (4.20-5.40); White Blood Cell (WBC) Count 7.6 10x3/uL (4.8-10.8)
[2022-05-19 05:18] LABS: Hemoglobin A1c 6.5 % (4.0-6.0)
[2022-05-19 05:41] LABS: Anion Gap 7 mmol/L (10-20); BUN (Urea Nitrogen) 21 mg/dL (9.8-20.1); Calc. Creatinine Clearance 67 mL/min (70-130); Calcium 9.2 mg/dL (7.8-10.44); Carbon Dioxide 23 mmol/L (23-31); Cardiac Risk 5.3 (Less than 4.5); Chloride 112 mmol/L (98-107); Cholesterol 247 mg/dl (< 200 Desired); Estimated GFR 51; Glucose 112 mg/dL (80-115); HDL Cholesterol 47 mg/dL (>60 Neg Risk); Iron 15 ug/dL (50-170); Iron Binding Capacity, Total 439 mcg/dL (265-497); LDL Cholesterol, Calculated 152 mg/dL; Potassium 4.4 mmol/L (3.5-5.1); Sodium 138 mmol/L (136-145); Triglycerides 238 mg/dL (Less than 150)
[2022-05-19 05:43] LABS: Troponin I Less than 0.010 ng/mL (< 0.028)
[2022-05-19 05:57] LABS: Ferritin 4.45 ng/mL (10-291); Thyroid Stimulating Hormone 2.206 uIU/mL (0.35-4.94)
[2022-05-19] MEDS: HYDROcodone/Acetaminophen 5/325 mg Tablet PO PRN (06:02)
[2022-05-19] MEDS: Rosuvastatin 20 MG TAB PO SCH (09:54)
[2022-05-19] MEDS: Montelukast Sodium 10 mg Tablet PO SCH (09:54)
[2022-05-19] MEDS: Pantoprazole 40 MG VIAL IVP SCH ×2 (09:54→22:08)
[2022-05-19] MEDS: Sodium Chloride 0.9% 1,000 ML IV SCH ×2 (15:26→15:42)
[2022-05-19] MEDS ORDERED: GoLYTELY 4,000 ml Bottle PO SCH (17:30)
[2022-05-19] MEDS ORDERED: Escitalopram Oxalate 10 mg Tablet PO SCH (21:00)
[2022-05-20] MEDS ORDERED: Pramipexole Di-HCl 1 MG TAB PO SCH ×2 (01:45→21:00)
[2022-05-20] MEDS: HYDROcodone/Acetaminophen 5/325 mg Tablet PO PRN (02:31)
[2022-05-20 05:55] LABS: #Basophils 0.1 thou/uL (0.0-0.2); #Eosinphils 0.2 thou/uL (0.0-0.7); #Monocytes 0.7 thou/uL (0.11-0.59); #Neutrophils 4.9 thou/uL (1.40-6.50); %Basophils 0.7 % (0.0-1.0); %Eosinophils 2.1 % (0.0-10.0); %Lymphocytes 25.3 % (21.0-51.0); %Neutrophils 62.9 % (42.0-75.0); Hemoglobin 8.5 g/dL (12.0-16.0); Mean Corpuscular HGB CONC 33.3 g/dL (32.0-36.0); Mean Corpuscular Hemoglobin 23.6 pg (27.0-31.0); Mean Corpuscular Volume 70.8 fl (78.0-98.0); Mean Platelet Volume 9.6 fL (7.4-10.4); Platelet Count 307 10x3/uL (130-400); White Blood Cell (WBC) Count 7.8 10x3/uL (4.8-10.8)
[2022-05-20 06:33] LABS: ALT (SGPT) 13 U/L (8-55); AST (SGOT) 18 U/L (5-34); Albumin 3.7 g/dL (3.4-4.8); Alkaline Phosphatase 92 U/L (40-110); Anion Gap 10 mmol/L (10-20); BUN (Urea Nitrogen) 14 mg/dL (9.8-20.1); Bilirubin, Total 0.8 mg/dL (0.2-1.2); Calc. Creatinine Clearance 71 mL/min (70-130); Calcium 9.4 mg/dL (7.8-10.44); Carbon Dioxide 23 mmol/L (23-31); Chloride 107 mmol/L (98-107); Estimated GFR 54; Globulin 3.5 g/dL (2.4-3.5); Glucose 114 mg/dL (80-115); Potassium 4.3 mmol/L (3.5-5.1); Protein, Total 7.2 g/dL (5.8-8.1); Sodium 136 mmol/L (136-145)
[2022-05-20] MEDS: Montelukast Sodium 10 mg Tablet PO SCH (08:40)
[2022-05-20] MEDS: Rosuvastatin 20 MG TAB PO SCH (08:40)
[2022-05-20] MEDS: Sodium Chloride 0.9% 1,000 ML IV SCH (08:40)
[2022-05-20] MEDS: Pantoprazole 40 MG VIAL IVP SCH (08:40)
[2022-05-20] MEDS ORDERED: PROPOFOL 200 MG/20 ML VIAL ONE (10:49)
[2022-05-20] MEDS ORDERED: Lidocaine 1% PF 5 ML VIAL ONE (10:49)
[2022-05-20] MEDS ORDERED: Fentanyl 100 MCG/2 ML VIAL ONE (11:46)
[2022-05-20] MEDS ORDERED: Iron, Sodium Ferric Gluconate 250 MG in Sodium Chloride 0.9% 250 ML 250 ML IVPB SCH (12:00)
[2022-05-20 12:31] VITALS: BP 160/76; TEMP 97.5
[2022-05-20] MEDS ORDERED: Hydrocortisone Acetate 25 MG Suppository PR SCH (21:00)
[2022-05-21] MEDS ORDERED: Methylcellulose 500 MG TAB PO SCH (09:00)
== END 2022-05-20 17:10 | disposition home or self-care (01) | DRG 394 ==
LOC: 2SW 19:28 → OBSVTOIN 05-19 12:27
PROVIDERS: ADMIT Family Medicine; ATTEND Family Medicine
PROC: 30233N1 Transfusion of Nonautologous Red Blood Cells into Peripheral Vein, Percutaneous Approach (ICD-10-PCS; 2022-05-19)
PROC: 0DJD8ZZ Inspection of Lower Intestinal Tract, Via Natural or Artificial Opening Endoscopic (ICD-10-PCS; principal; 2022-05-20)
PROC: 0DJ08ZZ Inspection of Upper Intestinal Tract, Via Natural or Artificial Opening Endoscopic (ICD-10-PCS; 2022-05-20)
DX: K64.8 Other hemorrhoids (principal); D62 Acute posthemorrhagic anemia; N17.9 Acute kidney failure, unspecified; R07.9 Chest pain, unspecified; M48.00 Spinal stenosis, site unspecified; J45.909 Unspecified asthma, uncomplicated; E78.5 Hyperlipidemia, unspecified; N18.30 Chronic kidney disease, stage 3 unspecified; E11.22 Type 2 diabetes mellitus with diabetic chronic kidney disease; E66.9 Obesity, unspecified; K58.0 Irritable bowel syndrome with diarrhea; I12.9 Hypertensive chronic kidney disease with stage 1 through stage 4 chronic kidney disease, or unspecified chronic kidney disease; K57.30 Diverticulosis of large intestine without perforation or abscess without bleeding; Z98.890 Other specified postprocedural states; Z90.49 Acquired absence of other specified parts of digestive tract; Z79.899 Other long term (current) drug therapy; Z88.0 Allergy status to penicillin; Z88.8 Allergy status to other drugs, medicaments and biological substances; Z84.1 Family history of disorders of kidney and ureter; Z79.51 Long term (current) use of inhaled steroids; Z85.038 Personal history of other malignant neoplasm of large intestine; Z82.49 Family history of ischemic heart disease and other diseases of the circulatory system; Z87.891 Personal history of nicotine dependence; Z20.822 Contact with and (suspected) exposure to COVID-19; Z68.36 Body mass index [BMI] 36.0-36.9, adult; K64.4 Residual hemorrhoidal skin tags; Z88.2 Allergy status to sulfonamides
CPT/HCPCS: 36415; 36416; 36430; 80048; 80053; 80061; 82728; 83036; 83540; 83550; 84443; 84484; 85025; 86850; 86900; 86901; 96374; 96376; C9113; G0378; J2405; J2704; J2916; J3010; J7050; P9016; Q0162

== ENCOUNTER 2022-07-14 09:55 | Outpatient (CLI) | payer OTHER | END 2022-07-14 09:56 | disposition home or self-care (01) | LOC: SCSMRI 09:55 | PROVIDERS: ATTEND Nurse Practitioner Family | DX: M47.26 Other spondylosis with radiculopathy, lumbar region (principal) | CPT/HCPCS: 72148 ==

== ENCOUNTER 2023-03-15 12:41 | Observation (INO) | payer OTHER ==
[2023-03-15 13:02] LABS: #Basophils 0.1 thou/uL (0.0-0.2); #Eosinphils 0.1 thou/uL (0.0-0.7); #Monocytes 0.6 thou/uL (0.11-0.59); #Neutrophils 4.4 thou/uL (1.40-6.50); %Basophils 0.8 % (0.0-1.0); %Eosinophils 1.5 % (0.0-10.0); %Lymphocytes 22.2 % (21.0-51.0); %Monocytes 8.7 % (0.0-10.0); Hematocrit 26.2 % (36.0-47.0); Hemoglobin 7.7 g/dL (12.0-16.0); Mean Corpuscular HGB CONC 29.4 g/dL (32.0-36.0); Mean Corpuscular Hemoglobin 20.9 pg (27.0-31.0); Mean Platelet Volume 9.9 fL (7.4-10.4); Platelet Count 269 10x3/uL (130-400); RBC Distribution Width 18.3 % (11.5-14.5); Red Blood Cell (RBC) Count 3.69 mill/uL (4.20-5.40); White Blood Cell (WBC) Count 6.6 10x3/uL (4.8-10.8)
[2023-03-15 13:25] LABS: ALT (SGPT) 22 U/L (8-55); AST (SGOT) 23 U/L (5-34); Albumin 4.2 g/dL (3.4-4.8); Alkaline Phosphatase 108 U/L (40-110); Anion Gap 15 mmol/L (10-20); BUN (Urea Nitrogen) 31 mg/dL (9.8-20.1); Bilirubin, Total 0.4 mg/dL (0.2-1.2); Calc. Creatinine Clearance 0 mL/min (70-130); Calcium 9.1 mg/dL (7.8-10.44); Carbon Dioxide 21 mmol/L (23-31); Chloride 110 mmol/L (98-107); Estimated GFR 46; Globulin 3.5 g/dL (2.4-3.5); Glucose 88 mg/dL (80-115); Potassium 4.9 mmol/L (3.5-5.1); Protein, Total 7.7 g/dL (5.8-8.1); Sodium 141 mmol/L (136-145)
[2023-03-15 13:28] LABS: Troponin I Less than 0.010 ng/mL (< 0.028)
[2023-03-15 13:45] LABS: CellaVision Operator ID LAB.KB; Elliptocytes SLIGHT = 2-5 cells HPF (0-1); Hypochromia SLIGHT = 6-15 cells HPF (0-5); Microcytosis SLIGHT = 6-15 cells HPF (0-5); Platelet Adequacy Comment Platelets Normal; Polychromasia SLIGHT = 2-3 cells HPF (0-2)
[2023-03-15 13:59] LABS: SARS-CoV-2 NAA Rapid Test Not Detected (NotDetected)
[2023-03-15] MEDS ORDERED: Acetaminophen 325 MG TAB PO PRN (18:18)
[2023-03-15] MEDS ORDERED: Ondansetron PF 4 MG/2 ML Vial IVP PRN (18:18)
[2023-03-15] MEDS ORDERED: Ipratropium/Albuterol 3 ML NEB NEB PRN (18:25)
[2023-03-15] MEDS ORDERED: Furosemide 40 MG/4 ML VIAL SLOW IVP SCH (18:30)
[2023-03-15] MEDS ORDERED: Furosemide 20 MG/2 ML VIAL ONE ×2 (19:16→19:49)
[2023-03-15 21:20] VITALS: BMI 37.0
[2023-03-15] MEDS ORDERED: traMADol HCl 50 MG TAB PO PRN (22:43)
[2023-03-15] MEDS ORDERED: traMADol HCl 50 MG TAB PO SCH (23:00)
[2023-03-15] MEDS ORDERED: Pramipexole Di-HCl 1 MG TAB PO SCH (23:00)
[2023-03-15] MEDS ORDERED: tiZANidine HCl 4 MG TAB PO SCH (23:30)
[2023-03-16 05:51] LABS: #Basophils 0.1 thou/uL (0.0-0.2); #Eosinphils 0.1 thou/uL (0.0-0.7); #Monocytes 0.7 thou/uL (0.11-0.59); #Neutrophils 4.4 thou/uL (1.40-6.50); %Basophils 0.7 % (0.0-1.0); %Eosinophils 1.4 % (0.0-10.0); %Lymphocytes 25.4 % (21.0-51.0); %Monocytes 9.9 % (0.0-10.0); %Neutrophils 62.2 % (42.0-75.0); Hematocrit 28.8 % (36.0-47.0); Hemoglobin 8.7 g/dL (12.0-16.0); Mean Corpuscular HGB CONC 30.2 g/dL (32.0-36.0); Mean Corpuscular Hemoglobin 22.1 pg (27.0-31.0); Mean Platelet Volume 9.5 fL (7.4-10.4); Platelet Count 269 10x3/uL (130-400); RBC Distribution Width 19.9 % (11.5-14.5); Red Blood Cell (RBC) Count 3.93 mill/uL (4.20-5.40); White Blood Cell (WBC) Count 7.1 10x3/uL (4.8-10.8)
[2023-03-16 05:53] LABS: Mean Corpuscular Volume 73.3 fl (78.0-98.0)
[2023-03-16] MEDS ORDERED: Furosemide 20 MG/2 ML VIAL SLOW IVP SCH (06:00)
[2023-03-16 06:12] LABS: Anion Gap 16 mmol/L (10-20); BUN (Urea Nitrogen) 28 mg/dL (9.8-20.1); Calc. Creatinine Clearance 63 mL/min (70-130); Calcium 9.5 mg/dL (7.8-10.44); Carbon Dioxide 24 mmol/L (23-31); Chloride 106 mmol/L (98-107); Estimated GFR 46; Glucose 117 mg/dL (80-115); Magnesium 1.7 mg/dL (1.6-2.6); Potassium 4.3 mmol/L (3.5-5.1); Sodium 142 mmol/L (136-145)
[2023-03-16] MEDS ORDERED: CO Q-10 CAPSULE 100 MG PO SCH (07:30)
[2023-03-16] MEDS: HumaLOG 300 UNITS/3 ML VIAL SC SCH ×2 (08:17→08:25)
[2023-03-16] MEDS ORDERED: Ipratropium Bromide 2.5 ml Neb NEB PRN (08:43)
[2023-03-16] MEDS ORDERED: Empagliflozin 25 MG TAB PO SCH (09:00)
[2023-03-16] MEDS ORDERED: Insulin Glargine 30 UNITS/0.3 ML VIAL SC SCH (09:00)
[2023-03-16] MEDS ORDERED: Non-Formulary Item 1 EACH (Zinc Sulfate [Zinc] 50 MG Tablet) PO SCH (09:00)
[2023-03-16] MEDS ORDERED: tiZANidine HCl 4 MG TAB PO SCH (09:00)
[2023-03-16] MEDS ORDERED: Losartan 25 MG TAB PO SCH (09:00)
[2023-03-16] MEDS ORDERED: Isosorbide Mononitrate 30 MG ER.TAB PO SCH (09:00)
[2023-03-16] MEDS ORDERED: Montelukast Sodium 10 mg Tablet PO SCH (09:00)
[2023-03-16] MEDS ORDERED: Escitalopram Oxalate 10 mg Tablet PO SCH (09:00)
[2023-03-16] MEDS ORDERED: Rosuvastatin 10 MG TAB PO SCH (09:00)
[2023-03-16 11:44] VITALS: TEMP 98
[2023-03-16 13:18] VITALS: BP 130/71
[2023-03-16] MEDS ORDERED: Pramipexole Di-HCl 1 MG TAB PO SCH (21:00)
== END 2023-03-16 13:50 | disposition home or self-care (01) ==
LOC: ERS 12:41 → 2SW 18:18
PROVIDERS: ADMIT Internal Medicine; ATTEND Internal Medicine
PROC: B246ZZZ Ultrasonography of Right and Left Heart (ICD-10-PCS; principal; 2023-03-15)
DX: R09.02 Hypoxemia (principal); J45.909 Unspecified asthma, uncomplicated; E11.9 Type 2 diabetes mellitus without complications; N18.32 Chronic kidney disease, stage 3b; D63.1 Anemia in chronic kidney disease; Z88.8 Allergy status to other drugs, medicaments and biological substances; Z88.0 Allergy status to penicillin; Z88.2 Allergy status to sulfonamides; Z85.038 Personal history of other malignant neoplasm of large intestine; Z79.899 Other long term (current) drug therapy; Z87.891 Personal history of nicotine dependence; Z91.012 Allergy to eggs
CPT/HCPCS: 36415; 36416; 36430; 71045; 80048; 80053; 83735; 83880; 84484; 85025; 86850; 86900; 86901; 93005; 93306; 94640; 96374; G0378; J1815; J1940; J7620; P9016

== ENCOUNTER 2025-02-09 05:50 | Day surgery (SDC) | payer OTHER ==
[2025-02-06 10:38] VITALS: BMI 38.0
[2025-02-09] MEDS ORDERED: fentaNYL PF 100 MCG/2 ML SYRINGE ONE (06:54)
[2025-02-09] MEDS ORDERED: CEFAZOLIN 2 GM VIAL ONE (07:20)
[2025-02-09] MEDS ORDERED: PROPOFOL 200 MG/20 ML VIAL ONE (07:44)
[2025-02-09] MEDS ORDERED: Lidocaine 1% PF 5 ML VIAL ONE (07:52)
[2025-02-09] MEDS ORDERED: Ondansetron PF 4 MG/2 ML Vial ONE (07:54)
[2025-02-09] MEDS ORDERED: HYDROcodone/Acetaminophen 5/325 mg Tablet ONE (09:15)
== END 2025-02-09 10:00 | disposition home or self-care (01) ==
LOC: SDC 05:50
PROVIDERS: ATTEND Orthopaedic Surgery
PROC: 0HBEXZZ Excision of Left Lower Arm Skin, External Approach (ICD-10-PCS; principal; 2025-02-09)
DX: L72.0 Epidermal cyst (principal); M65.341 Trigger finger, right ring finger; I11.0 Hypertensive heart disease with heart failure; I50.9 Heart failure, unspecified; E11.9 Type 2 diabetes mellitus without complications; E78.5 Hyperlipidemia, unspecified; F32.A Depression, unspecified; Z96.652 Presence of left artificial knee joint; Z87.891 Personal history of nicotine dependence; Z90.49 Acquired absence of other specified parts of digestive tract; Z90.710 Acquired absence of both cervix and uterus; Z91.0120 Allergy to eggs, unspecified; Z88.8 Allergy status to other drugs, medicaments and biological substances; Z88.2 Allergy status to sulfonamides; Z79.4 Long term (current) use of insulin; Z79.899 Other long term (current) drug therapy
CPT/HCPCS: 11403; 12031; 82962; J0665; J2250; J2405; J2704; 36416; 88305